=== PATIENT | female | born 1945 | race Caucasian/White ===

== ENCOUNTER → 2016-10-14 | Outpatient (CLI) | payer OTHER, MEDICAID ==
[~2016-10-14] MED LIST: ALPR0.5T; ASPI81CH43; CARI-277; CARTIA; CYCL-181; DONE5TAB11; FURO40TA; GEMF600T3; KLOR CON; LEVOTHYROXINE PO; LIPITOR; METOPROLOL PO; PERCOT; PLAVIX PO; RANITIDINE PO; SUCRALFATE; TRAM50TA2 OR; TRIA37.561
[2016-10-14 10:43] LABS: Basophils # (auto) 0.1 uL; Basophils % (auto) 0.9 % (0.0-2.0); CONDITION Y; Eosinophils # (auto) 0.2 uL; Eosinophils % (auto) 2.3 % (0.0-7.0); Hematocrit 50.2 % (36.0-46.0); Hemoglobin 16.8 g/dL (12.2-16.2); Lymphocytes # (auto) 2.9 uL; Mean Corpuscular Hemoglobin 32.2 pg (28.0-32.0); Mean Corpuscular Hgb Conc. 33.4 g/dL (32.0-36.0); Mean Corpuscular Volume 96.4 fL (80.0-100.0); Mean Platelet Volume 9.6 fL (7.4-10.4); Monocytes # (auto) 0.7 uL; Monocytes % (auto) 7.4 % (0.0-12.0); Neutrophils % (auto) 60.4 % (37.0-80.0); Platelet Count (auto) 209 10^3/uL (140-450); Red Cell Distribution Width 14.9 % (11.6-16.0); White Blood Cell 9.9 10^3/uL (4.4-10.8)
[2016-10-14 11:14] LABS: Albumin 3.4 g/dL (3.4-5.0); BUN/Creatinine Ratio 14.2; Bilirubin, Total 0.6 mg/dL (0.2-1.0); Calcium 9.8 mg/dL (8.5-10.1); Total Protein 7.8 g/dL (6.4-8.2)
[2016-10-14 11:17] LABS: Potassium 5.4 mmol/L (3.5-5.1)
== END | disposition home or self-care (01) ==
LOC: LAB 10:02
PROVIDERS: ATTEND Internal Medicine
DX: M81.0 Age-related osteoporosis without current pathological fracture (principal); J44.9 Chronic obstructive pulmonary disease, unspecified; E78.5 Hyperlipidemia, unspecified; I10 Essential (primary) hypertension
CPT/HCPCS: 36415; 80053; 80061; 84443; 85025

== ENCOUNTER → 2016-12-30 | Outpatient (CLI) | payer OTHER, MEDICAID ==
[~2016-12-30] MED LIST changes: +ALBUTEROL SULF 2.5 MG/0.5ML(0.5%) NEB SOLN ONE
== END | disposition home or self-care (01) ==
LOC: RT 08:27
PROVIDERS: ATTEND Internal Medicine
DX: J44.9 Chronic obstructive pulmonary disease, unspecified (principal)
CPT/HCPCS: 94060

== ENCOUNTER 2017-01-21 12:21 | Inpatient (IN) | payer OTHER, MEDICAID ==
[~2017-01-21] VITALS: Ht 165.1 cm; Wt 77.1 kg
[~2017-01-21 12:21] MED LIST changes: -ALBUTEROL SULF 2.5 MG/0.5ML(0.5%) NEB SOLN ONE
[2017-01-21] MEDS ORDERED: methylPREDNISolone SOD SUCC 125 MG/2 ML VL IV ONE (15:00)
[2017-01-21] MEDS ORDERED: ALBUTEROL SULF 2.5 MG/0.5ML(0.5%) NEB SOLN NEB ONE (15:00)
[2017-01-21] MEDS ORDERED: IPRATROPIUM BROM 0.5 MG/2.5ML INH SOL NEB ONE (15:00)
[2017-01-21 15:21] LABS: Basophils # (auto) 0.1 uL; Eosinophils # (auto) 0.3 uL; Eosinophils % (auto) 2.7 % (0.0-7.0); Hematocrit 44.6 % (36.0-46.0); Lymphocytes % (auto) 29.1 % (10.0-50.0); Mean Corpuscular Hgb Conc. 33.6 g/dL (32.0-36.0); Mean Corpuscular Volume 98.3 fL (80.0-100.0); Mean Platelet Volume 8.4 fL (6.9-10.8); Monocytes # (auto) 0.8 uL; Monocytes % (auto) 8.3 % (0.0-12.0); Neutrophils % (auto) 58.9 % (37.0-80.0); Platelet Count (auto) 161 10^3/uL (140-450); White Blood Cell 10.2 10^3/uL (4.4-10.8)
[2017-01-21 15:52] LABS: Albumin 3.3 g/dL (3.4-5.0); Alkaline Phosphatase 77 U/L (45-117); Anion Gap 6 (5-15); Aspartate Aminotransferase 11 U/L (15-37); BUN/Creatinine Ratio 16.2; Bilirubin, Total 0.5 mg/dL (0.2-1.0); Blood Urea Nitrogen 19 mg/dL (7-18); Calcium 9.1 mg/dL (8.5-10.1); Carbon Dioxide 30 mmol/L (21-32); Chloride 103 mmol/L (98-107); GFR African American 58 mL/min; GFR Non-African American 48 mL/min; Glucose 89 mg/dL (74-106); Sodium 139 mmol/L (136-145); Total Protein 7.2 g/dL (6.4-8.2)
[2017-01-21] MEDS ORDERED: HYDROcodone-ACET 5/325MG TAB PO ONE (16:00)
[2017-01-21 16:18] LABS: Temperature: 22.7 C (20.0-25.0)
[2017-01-21] MEDS ORDERED: KETOROLAC TROMETH 30 MG/ML 1ML VIAL IV ONE (18:15)
[2017-01-21] MEDS ORDERED: NITROGLYCERIN 0.4 MG SL TAB SL PRN (18:30)
[2017-01-21] MEDS ORDERED: PROMETHAZINE HCL 25 MG/ML 1ML IV PRN (18:30)
[2017-01-21] MEDS ORDERED: TEMAZEPAM 15 MG CAP PO PRN (18:30)
[2017-01-21] MEDS ORDERED: MORPHINE SULF INJ 2 MG/ML SYRINGE 1ML IV PRN ×2 (18:30)
[2017-01-21] MEDS ORDERED: ALBUTEROL SULF 2.5 MG/0.5ML(0.5%) NEB SOLN NEB PRN (18:30)
[2017-01-21] MEDS ORDERED: ACETAMINOPHEN 500 MG TAB PO PRN (18:30)
[2017-01-21] MEDS ORDERED: ASPirin 81 mg TAB PO ONE (19:00)
[2017-01-21] MEDS ORDERED: LEVOFLOXACIN 500MG 100 ML IV ONE (19:00)
[2017-01-21] MEDS: ENOXAPARIN SOD 40 MG/0.4 ML SYRINGE SC SCH (19:45)
[2017-01-21 21:25] VITALS: BP 137/65
[2017-01-21 21:40] VITALS: BP 137/65
[2017-01-21 22:01] VITALS: BP 130/60
[2017-01-21] MEDS: GEMFIBROZIL 600 MG TAB PO SCH (22:40)
[2017-01-21] MEDS: SODIUM CHLOR 0.9% PF (SALINE LOCK) 10ML VIAL IV SCH (22:40)
[2017-01-21] MEDS: methylPREDNISolone SOD SUCC 40 MG/ML VL IV SCH (23:34)
[2017-01-21] MEDS: HYDROcodone-ACET 5/325MG TAB PO PRN (23:38)
[2017-01-22] MEDS: ALBUTEROL SULF 2.5 MG/0.5ML(0.5%) NEB SOLN NEB SCH ×4 (00:04→19:11)
[2017-01-22] MEDS: IPRATROPIUM BROM 0.5 MG/2.5ML INH SOL NEB SCH ×4 (00:04→19:10)
[2017-01-22] MEDS ORDERED: DILT240C71 PO (00:36)
[2017-01-22] MEDS ORDERED: LEVO175T31 PO (00:36)
[2017-01-22] MEDS ORDERED: TRAZ100T2 PO (00:36)
[2017-01-22] MEDS ORDERED: METO25TA62 PO (00:36)
[2017-01-22] MEDS ORDERED: HYDR25TA4 PO (00:36)
[2017-01-22] MEDS ORDERED: ATOR20TA50 PO (00:36)
[2017-01-22 05:00] VITALS: BP 130/67
[2017-01-22] MEDS: SODIUM CHLOR 0.9% PF (SALINE LOCK) 10ML VIAL IV SCH ×3 (06:03→21:26)
[2017-01-22] MEDS: methylPREDNISolone SOD SUCC 40 MG/ML VL IV SCH ×2 (06:03→21:27)
[2017-01-22] MEDS: LEVOTHYROXINE SODIUM 50 MCG TAB PO SCH (06:04)
[2017-01-22] MEDS: TRIAMTERENE/HCTZ 37.5/25 MG CAP PO SCH (06:05)
[2017-01-22] MEDS: HYDROcodone-ACET 5/325MG TAB PO PRN ×3 (06:31→21:31)
[2017-01-22 06:56] LABS: Urine Bilirubin Negative (Negative); Urine Blood Negative /uL (Negative); Urine Color Yellow (Yellow); Urine Glucose 1+ mg/dL (Normal); Urine Hyaline Cast FEW /lpf (0 - 2); Urine Ketone 1+ (Negative); Urine Mucus FEW (None Seen); Urine Nitrite Negative (Negative); Urine RBC 2 /hpf (0 - 4); Urine Squamous Epithelial Cell MOD /hpf (<5); Urine Urobilinogen Normal (Negative); Urine pH 5.5 (5.0-8.0)
[2017-01-22] MEDS ORDERED: FUROSEMIDE 40 MG TAB PO SCH (07:00)
[2017-01-22] MEDS: LEVOFLOXACIN 500MG 100 ML IV SCH (09:42)
[2017-01-22] MEDS: DILTIAZEM HCL 120MG ER CAP PO SCH (09:43)
[2017-01-22] MEDS: METOPROLOL SUCCINATE XL 50 MG TAB PO SCH (09:43)
[2017-01-22] MEDS: FAMOTIDINE 20 MG TAB PO SCH (09:44)
[2017-01-22] MEDS: ASPirin 81 mg TAB PO SCH (09:44)
[2017-01-22] MEDS: DONEPEZIL HYDROCHLORIDE 5 MG TAB PO SCH (09:44)
[2017-01-22] MEDS: GEMFIBROZIL 600 MG TAB PO SCH ×2 (09:44→21:27)
[2017-01-22] MEDS: ALPRAZolam 0.5 MG TAB PO SCH (09:45)
[2017-01-22] MEDS: CLOPIDOGREL BISULFATE 75 MG TAB PO SCH (09:45)
[2017-01-22 09:54] VITALS: BP 147/62
[2017-01-22] MEDS ORDERED: POTASSIUM CHL 20 Meq TABLET PO SCH (10:00)
[2017-01-22 14:38] VITALS: BP 131/52
[2017-01-22 17:23] VITALS: BP 125/77
[2017-01-22] MEDS: FUROSEMIDE 40 MG/4 ML VIAL IV SCH (18:06)
[2017-01-22] MEDS: ENOXAPARIN SOD 40 MG/0.4 ML SYRINGE SC SCH (21:26)
[2017-01-22] MEDS: POTASSIUM CHL 20 Meq TABLET PO SCH (21:27)
[2017-01-22 22:00] VITALS: BP 109/50
[2017-01-23] MEDS: IPRATROPIUM BROM 0.5 MG/2.5ML INH SOL NEB SCH ×4 (00:45→19:45)
[2017-01-23] MEDS: ALBUTEROL SULF 2.5 MG/0.5ML(0.5%) NEB SOLN NEB SCH ×4 (00:45→19:45)
[2017-01-23 05:03] VITALS: BP 123/61
[2017-01-23] MEDS: TRIAMTERENE/HCTZ 37.5/25 MG CAP PO SCH (06:02)
[2017-01-23] MEDS: LEVOTHYROXINE SODIUM 50 MCG TAB PO SCH (06:02)
[2017-01-23] MEDS: SODIUM CHLOR 0.9% PF (SALINE LOCK) 10ML VIAL IV SCH ×3 (06:02→22:00)
[2017-01-23] MEDS: FUROSEMIDE 40 MG/4 ML VIAL IV SCH ×2 (06:03→18:36)
[2017-01-23] MEDS: HYDROcodone-ACET 5/325MG TAB PO PRN ×2 (06:10→16:01)
[2017-01-23 06:58] LABS: BUN/Creatinine Ratio 26.3; Calcium 9.5 mg/dL (8.5-10.1); Potassium 4.8 mmol/L (3.5-5.1)
[2017-01-23 09:00] VITALS: BP 121/42
[2017-01-23] MEDS: METOPROLOL SUCCINATE XL 50 MG TAB PO SCH (10:00)
[2017-01-23] MEDS: DILTIAZEM HCL 120MG ER CAP PO SCH (10:00)
[2017-01-23] MEDS: methylPREDNISolone SOD SUCC 40 MG/ML VL IV SCH ×2 (10:20→22:41)
[2017-01-23] MEDS: LEVOFLOXACIN 500MG 100 ML IV SCH (10:21)
[2017-01-23] MEDS: DONEPEZIL HYDROCHLORIDE 5 MG TAB PO SCH (10:23)
[2017-01-23] MEDS: GEMFIBROZIL 600 MG TAB PO SCH ×2 (10:23→22:41)
[2017-01-23] MEDS: CLOPIDOGREL BISULFATE 75 MG TAB PO SCH (10:23)
[2017-01-23] MEDS: FAMOTIDINE 20 MG TAB PO SCH (10:23)
[2017-01-23] MEDS: POTASSIUM CHL 20 Meq TABLET PO SCH ×2 (10:23→22:41)
[2017-01-23] MEDS: ALPRAZolam 0.5 MG TAB PO SCH (10:24)
[2017-01-23] MEDS: ASPirin 81 mg TAB PO SCH (10:24)
[2017-01-23 13:00] VITALS: BP 129/93
[2017-01-23 17:00] VITALS: BP 106/65
[2017-01-23 20:00] VITALS: BP 102/64
[2017-01-23] MEDS: ENOXAPARIN SOD 40 MG/0.4 ML SYRINGE SC SCH (20:50)
[2017-01-23 22:00] VITALS: BP 102/64
[2017-01-24] MEDS: IPRATROPIUM BROM 0.5 MG/2.5ML INH SOL NEB SCH ×3 (00:06→13:08)
[2017-01-24] MEDS: ALBUTEROL SULF 2.5 MG/0.5ML(0.5%) NEB SOLN NEB SCH ×3 (00:08→13:08)
[2017-01-24] MEDS: LORazepam 0.5 MG TAB PO PRN (03:54)
[2017-01-24 05:00] VITALS: BP 115/66
[2017-01-24] MEDS: FUROSEMIDE 40 MG/4 ML VIAL IV SCH ×2 (05:49→18:14)
[2017-01-24] MEDS: SODIUM CHLOR 0.9% PF (SALINE LOCK) 10ML VIAL IV SCH ×3 (05:49→22:03)
[2017-01-24] MEDS: TRIAMTERENE/HCTZ 37.5/25 MG CAP PO SCH (07:00)
[2017-01-24] MEDS: LEVOTHYROXINE SODIUM 50 MCG TAB PO SCH (07:01)
[2017-01-24 07:31] VITALS: BP 130/60
[2017-01-24] MEDS: ALPRAZolam 0.5 MG TAB PO SCH (10:00)
[2017-01-24] MEDS: METOPROLOL SUCCINATE XL 50 MG TAB PO SCH (10:00)
[2017-01-24] MEDS: CLOPIDOGREL BISULFATE 75 MG TAB PO SCH (10:22)
[2017-01-24] MEDS: FAMOTIDINE 20 MG TAB PO SCH (10:22)
[2017-01-24] MEDS: DONEPEZIL HYDROCHLORIDE 5 MG TAB PO SCH (10:22)
[2017-01-24] MEDS: GEMFIBROZIL 600 MG TAB PO SCH ×2 (10:22→22:03)
[2017-01-24] MEDS: methylPREDNISolone SOD SUCC 40 MG/ML VL IV SCH ×2 (10:22→23:32)
[2017-01-24] MEDS: ASPirin 81 mg TAB PO SCH (10:22)
[2017-01-24] MEDS: POTASSIUM CHL 20 Meq TABLET PO SCH ×2 (10:24→22:03)
[2017-01-24] MEDS: LEVOFLOXACIN 500MG 100 ML IV SCH (10:25)
[2017-01-24] MEDS: DILTIAZEM HCL 120MG ER CAP PO SCH (10:26)
[2017-01-24 12:06] VITALS: BP 132/67
[2017-01-24 17:26] VITALS: BP 115/68
[2017-01-24] MEDS: HYDROcodone-ACET 5/325MG TAB PO PRN (20:06)
[2017-01-24] MEDS: ENOXAPARIN SOD 40 MG/0.4 ML SYRINGE SC SCH (20:06)
[2017-01-24 21:28] VITALS: BP 115/68
[2017-01-24 22:00] VITALS: BP 95/63
[2017-01-24] MEDS: BUDESONIDE (INHALATION) 0.5 MG/2 ML NEB NEB SCH (22:02)
[2017-01-25] MEDS: HYDROcodone-ACET 5/325MG TAB PO PRN ×2 (02:39→15:18)
[2017-01-25 04:34] VITALS: BP 126/53
[2017-01-25] MEDS: SODIUM CHLOR 0.9% PF (SALINE LOCK) 10ML VIAL IV SCH ×3 (05:34→22:20)
[2017-01-25] MEDS: IPRATROPIUM BROM 0.5 MG/2.5ML INH SOL NEB SCH ×4 (05:45→18:35)
[2017-01-25] MEDS: BUDESONIDE (INHALATION) 0.5 MG/2 ML NEB NEB SCH ×3 (05:45→18:35)
[2017-01-25] MEDS: ALBUTEROL SULF 2.5 MG/0.5ML(0.5%) NEB SOLN NEB SCH ×4 (05:45→18:34)
[2017-01-25] MEDS: methylPREDNISolone SOD SUCC 40 MG/ML VL IV SCH ×3 (06:00→17:38)
[2017-01-25] MEDS: TRIAMTERENE/HCTZ 37.5/25 MG CAP PO SCH (06:01)
[2017-01-25] MEDS: LEVOTHYROXINE SODIUM 50 MCG TAB PO SCH (06:01)
[2017-01-25] MEDS: ALPRAZolam 0.5 MG TAB PO SCH (09:57)
[2017-01-25] MEDS: POTASSIUM CHL 20 Meq TABLET PO SCH ×2 (09:57→22:30)
[2017-01-25] MEDS: FAMOTIDINE 20 MG TAB PO SCH (09:57)
[2017-01-25] MEDS: DONEPEZIL HYDROCHLORIDE 5 MG TAB PO SCH (09:57)
[2017-01-25] MEDS: ASPirin 81 mg TAB PO SCH (09:57)
[2017-01-25] MEDS: CLOPIDOGREL BISULFATE 75 MG TAB PO SCH (09:57)
[2017-01-25] MEDS: GEMFIBROZIL 600 MG TAB PO SCH ×2 (09:57→23:12)
[2017-01-25] MEDS: DILTIAZEM HCL 120MG ER CAP PO SCH (09:58)
[2017-01-25] MEDS: METOPROLOL SUCCINATE XL 50 MG TAB PO SCH (09:59)
[2017-01-25] MEDS: NICOTINE 21MG/24 HR TOPICAL PATCH TD SCH (10:03)
[2017-01-25] MEDS: LEVOFLOXACIN 500MG 100 ML IV SCH (10:17)
[2017-01-25 10:21] VITALS: BP 104/68
[2017-01-25 13:00] VITALS: BP 93/60
[2017-01-25 16:12] VITALS: BP 134/71
[2017-01-25 21:28] VITALS: BP 137/57
[2017-01-25] MEDS: ENOXAPARIN SOD 40 MG/0.4 ML SYRINGE SC SCH (23:10)
[2017-01-26] MEDS: methylPREDNISolone SOD SUCC 40 MG/ML VL IV SCH ×2 (00:31→06:01)
[2017-01-26 05:00] VITALS: BP 120/57
[2017-01-26] MEDS: SODIUM CHLOR 0.9% PF (SALINE LOCK) 10ML VIAL IV SCH ×3 (05:58→22:59)
[2017-01-26] MEDS: LEVOTHYROXINE SODIUM 50 MCG TAB PO SCH (06:32)
[2017-01-26] MEDS: IPRATROPIUM BROM 0.5 MG/2.5ML INH SOL NEB SCH ×4 (06:34→19:04)
[2017-01-26] MEDS: ALBUTEROL SULF 2.5 MG/0.5ML(0.5%) NEB SOLN NEB SCH ×4 (06:34→19:04)
[2017-01-26] MEDS: TRIAMTERENE/HCTZ 37.5/25 MG CAP PO SCH (06:44)
[2017-01-26 07:20] LABS: Basophils # (auto) 0 uL; Basophils % (auto) 0.1 % (0.0-2.0); Eosinophils # (auto) 0 uL; Hematocrit 49.5 % (36.0-46.0); Hemoglobin 17.1 g/dL (12.2-16.2); Lymphocytes # (auto) 0.6 uL; Mean Corpuscular Hemoglobin 33.5 pg (28.0-32.0); Mean Corpuscular Hgb Conc. 34.7 g/dL (32.0-36.0); Mean Corpuscular Volume 96.7 fL (80.0-100.0); Mean Platelet Volume 9.2 fL (6.9-10.8); Monocytes # (auto) 0.5 uL; Monocytes % (auto) 4.9 % (0.0-12.0); Neutrophils # (auto) 8.1 uL; Platelet Count (auto) 182 10^3/uL (140-450); Red Cell Distribution Width 15.6 % (11.8-14.3); White Blood Cell 9.2 10^3/uL (4.4-10.8)
[2017-01-26 07:47] LABS: BUN/Creatinine Ratio 37.1; Calcium 9.6 mg/dL (8.5-10.1); Potassium 4.4 mmol/L (3.5-5.1)
[2017-01-26 08:10] VITALS: BP 120/51
[2017-01-26 09:23] LABS: Albumin 3.2 g/dL (3.4-5.0); Alkaline Phosphatase 63 U/L (45-117); Aspartate Aminotransferase 9 U/L (15-37); Bilirubin, Direct < 0.1 mg/dL (0-0.2); Bilirubin, Total 0.6 mg/dL (0.2-1.0); Total Protein 7.2 g/dL (6.4-8.2)
[2017-01-26] MEDS: DILTIAZEM HCL 120MG ER CAP PO SCH (10:00)
[2017-01-26] MEDS: METOPROLOL SUCCINATE XL 50 MG TAB PO SCH (10:00)
[2017-01-26] MEDS: predniSONE 20 MG TAB PO SCH (10:14)
[2017-01-26] MEDS: NICOTINE 21MG/24 HR TOPICAL PATCH TD SCH (10:15)
[2017-01-26] MEDS: DONEPEZIL HYDROCHLORIDE 5 MG TAB PO SCH (10:16)
[2017-01-26] MEDS: CLOPIDOGREL BISULFATE 75 MG TAB PO SCH (10:16)
[2017-01-26] MEDS: LEVOFLOXACIN 500 MG TAB PO SCH (10:17)
[2017-01-26] MEDS: FAMOTIDINE 20 MG TAB PO SCH (10:17)
[2017-01-26] MEDS: GEMFIBROZIL 600 MG TAB PO SCH ×2 (10:17→22:10)
[2017-01-26] MEDS: ASPirin 81 mg TAB PO SCH (10:17)
[2017-01-26] MEDS: ALPRAZolam 0.5 MG TAB PO SCH (10:17)
[2017-01-26 13:00] VITALS: BP 103/64
[2017-01-26] MEDS: HYDROcodone-ACET 5/325MG TAB PO PRN ×2 (16:21→23:01)
[2017-01-26] MEDS: BUDESONIDE (INHALATION) 0.5 MG/2 ML NEB NEB SCH (19:04)
[2017-01-26] MEDS: ENOXAPARIN SOD 40 MG/0.4 ML SYRINGE SC SCH (20:00)
[2017-01-26 22:00] VITALS: BP 96/59
[2017-01-27] MEDS: LORazepam 0.5 MG TAB PO PRN (02:35)
[2017-01-27 05:00] VITALS: BP 142/80
[2017-01-27] MEDS: ALBUTEROL SULF 2.5 MG/0.5ML(0.5%) NEB SOLN NEB SCH ×3 (05:56→14:08)
[2017-01-27] MEDS: BUDESONIDE (INHALATION) 0.5 MG/2 ML NEB NEB SCH (05:57)
[2017-01-27] MEDS: IPRATROPIUM BROM 0.5 MG/2.5ML INH SOL NEB SCH ×3 (05:57→14:08)
[2017-01-27] MEDS: SODIUM CHLOR 0.9% PF (SALINE LOCK) 10ML VIAL IV SCH ×2 (06:00→14:00)
[2017-01-27] MEDS: LEVOTHYROXINE SODIUM 50 MCG TAB PO SCH (07:11)
[2017-01-27 07:55] LABS: Calcium 9.5 mg/dL (8.5-10.1)
[2017-01-27 07:57] LABS: BUN/Creatinine Ratio 47.4
[2017-01-27 08:00] VITALS: BP 103/59
[2017-01-27 09:00] VITALS: BP 103/59
[2017-01-27] MEDS: GEMFIBROZIL 600 MG TAB PO SCH (09:20)
[2017-01-27] MEDS: predniSONE 20 MG TAB PO SCH (09:20)
[2017-01-27] MEDS: DILTIAZEM HCL 120MG ER CAP PO SCH (09:21)
[2017-01-27] MEDS: ALPRAZolam 0.5 MG TAB PO SCH (09:21)
[2017-01-27] MEDS: CLOPIDOGREL BISULFATE 75 MG TAB PO SCH (09:21)
[2017-01-27] MEDS: ASPirin 81 mg TAB PO SCH (09:21)
[2017-01-27] MEDS: DONEPEZIL HYDROCHLORIDE 5 MG TAB PO SCH (09:21)
[2017-01-27] MEDS: LEVOFLOXACIN 500 MG TAB PO SCH (09:21)
[2017-01-27] MEDS: FAMOTIDINE 20 MG TAB PO SCH (09:21)
[2017-01-27] MEDS: METOPROLOL SUCCINATE XL 50 MG TAB PO SCH (09:22)
[2017-01-27] MEDS: NICOTINE 21MG/24 HR TOPICAL PATCH TD SCH (09:23)
[2017-01-27] MEDS ORDERED: FLUT110A INH (10:26)
[2017-01-27] MEDS ORDERED: ALBUAER3 IN (10:26)
[2017-01-27 10:43] LABS: Allen Test Yes; Blood 02Sat 82.6 % (96-100); Blood COHb 0.8 % (0.5-1.5); Blood MetHb 0.2 % (0.0-1.5); HCO3 25.6 mmol/L (22-26.0); HHb 17.2 % (0.0-5.0); MODE ROOM AIR; O2Hb 81.8 % (94.0-97.0); PCO2 40.8 mmHg (35.0-45.0); PCO2(T) 40.8 mmHg (35.0-45.0); PO2 48.6 mmHg (80.0-100.0); PO2(T) 48.6 mmHg (80.0-100.0); Sample Type Arterial; pH 7.415 (7.350-7.450)
[2017-01-27 13:00] VITALS: BP 108/71
[2017-01-27] MEDS: HYDROcodone-ACET 5/325MG TAB PO PRN (13:03)
[2017-01-27 17:00] VITALS: BP 109/63
[2017-01-27 17:51] VITALS: BP 108/71
[2017-01-28] MEDS ORDERED: LEVOFLOXACIN 250 MG TAB PO SCH (10:00)
== END 2017-01-27 18:47 | disposition home or self-care (01) | DRG 291 ==
LOC: ER 12:21 → TELE 12:22 → TELE-CENTR 21:25 → CENTRAL 01-25 00:02
PROVIDERS: ADMIT Internal Medicine; ATTEND Internal Medicine
DX: I11.0 Hypertensive heart disease with heart failure (principal); J96.01 Acute respiratory failure with hypoxia; J44.1 Chronic obstructive pulmonary disease with (acute) exacerbation; J81.1 Chronic pulmonary edema; E87.1 Hypo-osmolality and hyponatremia; N39.0 Urinary tract infection, site not specified; I50.33 Acute on chronic diastolic (congestive) heart failure; E78.5 Hyperlipidemia, unspecified; E03.9 Hypothyroidism, unspecified; F17.210 Nicotine dependence, cigarettes, uncomplicated; I25.10 Atherosclerotic heart disease of native coronary artery without angina pectoris; G89.29 Other chronic pain; I71.4 Abdominal aortic aneurysm, without rupture; F41.9 Anxiety disorder, unspecified; R79.89 Other specified abnormal findings of blood chemistry; T50.2X5A Adverse effect of carbonic-anhydrase inhibitors, benzothiadiazides and other diuretics, initial encounter; Z95.5 Presence of coronary angioplasty implant and graft; Z88.1 Allergy status to other antibiotic agents; Z88.5 Allergy status to narcotic agent; Y92.89 Other specified places as the place of occurrence of the external cause; Z82.49 Family history of ischemic heart disease and other diseases of the circulatory system; I25.2 Old myocardial infarction; Z90.710 Acquired absence of both cervix and uterus; Z90.49 Acquired absence of other specified parts of digestive tract; Z88.2 Allergy status to sulfonamides
CPT/HCPCS: 36415; 36600; 71010; 80048; 80053; 80076; 81001; 82805; 83880; 84443; 84484; 85025; 87205; 93005; 93306; 94640; 94761; 96365; 96375; J1885; J1956

== ENCOUNTER 2017-02-02 14:39 | Emergency (ER) | payer OTHER, MEDICAID ==
[~2017-02-02] VITALS: Ht 167.6 cm; Wt 77.1 kg
[~2017-02-02 14:39] MED LIST changes: +ALBUAER3 IN; -ASPI81CH43; +ATOR20TA50 PO; -CARI-277; -CARTIA; -CYCL-181; +DILT240C71 PO; -DONE5TAB11; +FLUT110A INH; -FURO40TA; -GEMF600T3; -KLOR CON; +LEVO175T31 PO; -LEVOTHYROXINE PO; -LIPITOR; +METO25TA62 PO; -METOPROLOL PO; -PERCOT; -RANITIDINE PO; -SUCRALFATE; -TRAM50TA2 OR; +TRAZ100T2 PO; -TRIA37.561
[2017-02-02 19:07] LABS: Basophils # (auto) 0.1 uL; Basophils % (auto) 0.9 % (0.0-2.0); Eosinophils # (auto) 0.1 uL; Eosinophils % (auto) 0.9 % (0.0-7.0); Hematocrit 47.3 % (36.0-46.0); Lymphocytes # (auto) 1.7 uL; Lymphocytes % (auto) 11.9 % (10.0-50.0); Mean Corpuscular Hgb Conc. 33.8 g/dL (32.0-36.0); Mean Corpuscular Volume 97.6 fL (80.0-100.0); Monocytes # (auto) 1.4 uL; Monocytes % (auto) 9.3 % (0.0-12.0); Neutrophils # (auto) 11.3 uL; Platelet Count (auto) 166 10^3/uL (140-450); Red Cell Distribution Width 14.8 % (11.8-14.3); White Blood Cell 14.7 10^3/uL (4.4-10.8)
[2017-02-02 19:30] LABS: Albumin 2.8 g/dL (3.4-5.0); Anion Gap 10 (5-15); Aspartate Aminotransferase 11 U/L (15-37); BUN/Creatinine Ratio 30.3; Blood Urea Nitrogen 46 mg/dL (7-18); Carbon Dioxide 31 mmol/L (21-32); Chloride 102 mmol/L (98-107); GFR African American 43 mL/min; GFR Non-African American 36 mL/min; Glucose 101 mg/dL (74-106); Magnesium 2.9 mg/dL (1.6-2.6); Sodium 143 mmol/L (136-145)
[2017-02-02 19:35] LABS: Alkaline Phosphatase 67 U/L (45-117); Total Protein 7.7 g/dL (6.4-8.2)
[2017-02-02] MEDS ORDERED: KETOROLAC TROMETH 30 MG/ML 1ML VIAL IV ONE (21:00)
[2017-02-02] MEDS ORDERED: cefTRIAXone 1GM/50ML D5W 50 ML IV ONE (21:00)
[2017-02-03 00:04] VITALS: BP 126/82
== END 2017-02-03 00:06 | disposition home or self-care (01) ==
LOC: ER 14:39 → EDBD 14:39 → ER 02-03 00:06
DX: R10.9 Unspecified abdominal pain (principal); I10 Essential (primary) hypertension; I25.2 Old myocardial infarction; E07.89 Other specified disorders of thyroid; J44.9 Chronic obstructive pulmonary disease, unspecified; F17.210 Nicotine dependence, cigarettes, uncomplicated; Z79.899 Other long term (current) drug therapy; Z88.6 Allergy status to analgesic agent; Z88.2 Allergy status to sulfonamides; Z88.8 Allergy status to other drugs, medicaments and biological substances
CPT/HCPCS: 36415; 74176; 80053; 83735; 84484; 85025; 93005; 96365; 96375; 99285; J0696; J1885

== ENCOUNTER 2017-08-14 21:58 | Inpatient (IN) | payer OTHER, MEDICAID ==
[~2017-08-14] VITALS: Ht 167.6 cm; Wt 71.1 kg
[~2017-08-14 21:58] MED LIST changes: +DILT-9 PO; -DILT240C71 PO; +HYDR25TA4 PO; +METO25TA5 PO; -METO25TA62 PO
[2017-08-14] MEDS ORDERED: NITROGLYCERIN 0.4 MG SL TAB SL ONE (22:14)
[2017-08-14] MEDS ORDERED: fentaNYL CITRATE 100 MCG/2 ML VL IV ONE (22:15)
[2017-08-14] MEDS ORDERED: fentaNYL CITRATE 100 MCG/2 ML VL ONE ×2 (22:15→22:53)
[2017-08-14] MEDS ORDERED: ASPirin 81 mg TAB PO ONE (22:15)
[2017-08-14 22:38] LABS: Basophils # (auto) 0.1 uL; Basophils % (auto) 0.7 % (0.0-2.0); Eosinophils # (auto) 0.4 uL; Hematocrit 38.5 % (36.0-46.0); Hemoglobin 12.8 g/dL (12.2-16.2); Lymphocytes # (auto) 2.7 uL; Lymphocytes % (auto) 33.8 % (10.0-50.0); Mean Corpuscular Hgb Conc. 33.2 g/dL (32.0-36.0); Mean Corpuscular Volume 90.4 fL (80.0-100.0); Monocytes # (auto) 0.7 uL; Monocytes % (auto) 9.3 % (0.0-12.0); Neutrophils # (auto) 4.1 uL; Neutrophils % (auto) 51.2 % (37.0-80.0); Nucleated Red Blood Cells % 0.1 %; Platelet Count (auto) 236 10^3/uL (140-450); Red Blood Cells 4.25 10^6/uL (4.0-5.20); Red Cell Distribution Width 17.2 % (11.8-14.3); White Blood Cell 7.9 10^3/uL (4.4-10.8)
[2017-08-14] MEDS ORDERED: SODIUM CHL 0.9% 50 ML ONE (22:38)
[2017-08-14] MEDS ORDERED: ANGIOMAX 250 MG VIAL IV ONE (22:38)
[2017-08-14] MEDS ORDERED: LIDOCAINE 2%HCL (LOCAL ANESTH.) INJ 20ML MDV ONE (22:39)
[2017-08-14] MEDS ORDERED: IOHEXOL 350 MG/ML 100ML IJ ONE (22:39)
[2017-08-14] MEDS ORDERED: MIDAZOLAM HCL 1MG/1ML-2 ML VIAL ONE (22:53)
[2017-08-14] MEDS ORDERED: ONDANSETRON HCL 4 MG/2 ML VIAL ONE (22:54)
[2017-08-14 22:57] LABS: Albumin 2.8 g/dL (3.4-5.0); BUN/Creatinine Ratio 14.8; Calcium 9.3 mg/dL (8.5-10.1); Magnesium 1.9 mg/dL (1.6-2.6); Potassium 3.7 mmol/L (3.5-5.1)
[2017-08-14 23:03] LABS: INR 0.95 (0.9-1.15); Partial Thromboplastin Time 28.7 sec (22.64-33.71); Prothrombin Time 10.3 sec (9.37-12.3)
[2017-08-14] MEDS ORDERED: IODIXANOL 320MG/ML 100ML BTL IV ONE (23:07)
[2017-08-14] MEDS ORDERED: EPTIFIBATIDE INJ (2MG/ML) 10ML VIAL IV ONE (23:10)
[2017-08-14 23:13] LABS: Bilirubin, Total 0.4 mg/dL (0.2-1.0); Total Protein 6.9 g/dL (6.4-8.2)
[2017-08-14] MEDS ORDERED: PRASUGREL HCL 10 MG TAB ONE (23:39)
[2017-08-15] VITALS (95 sets, daily range): BP systolic 70–155; BP diastolic 33–82
[2017-08-15] MEDS ORDERED: SODIUM CHL 0.9% 500 ML IV ONE (00:08)
[2017-08-15] MEDS ORDERED: NITROGLYCERIN 0.4 MG SL TAB SL PRN (00:15)
[2017-08-15] MEDS ORDERED: MORPHINE SULFATE 4 MG/ML SYR/VIAL IV PRN (00:15)
[2017-08-15] MEDS ORDERED: HYDROcodone-ACET 5/325MG TAB PO PRN (00:15)
[2017-08-15] MEDS ORDERED: ACETAMINOPHEN 500 MG TAB PO PRN (00:15)
[2017-08-15] MEDS: NOREPINEPHRINE 16 MG/500ML KIT 500 ML IV SCH (00:15)
[2017-08-15] MEDS ORDERED: NOREPINEPHRINE 16 MG/500ML KIT 500 ML IV ONE (00:20)
[2017-08-15] MEDS: SODIUM CHLORIDE 0.9% 1,000 ML IV SCH ×3 (01:17→20:15)
[2017-08-15] MEDS ORDERED: ALPRAZolam 0.25 MG TAB ONE (01:36)
[2017-08-15] MEDS ORDERED: ATORVASTATIN 20 MG TAB PO SCH (10:00)
[2017-08-15] MEDS ORDERED: NITROGLYCERIN 0.4 MG SL TAB SL ONE (10:00)
[2017-08-15] MEDS: LEVOTHYROXINE SODIUM 50 MCG TAB PO SCH (10:32)
[2017-08-15] MEDS: ASPirin 81 mg TAB PO SCH (10:32)
[2017-08-15] MEDS: PRASUGREL HCL 10 MG TAB PO SCH (10:32)
[2017-08-15] MEDS: ALPRAZolam 0.5 MG TAB PO SCH (10:33)
[2017-08-15] MEDS: DOPamine 3200MCG/ML 250 ML IV SCH (12:11)
[2017-08-15] MEDS: ONDANSETRON HCL 4 MG/2 ML VIAL IV PRN ×2 (12:36→21:12)
[2017-08-15 13:32] LABS: BUN/Creatinine Ratio 15.8; Calcium 8.7 mg/dL (8.5-10.1); Potassium 3.7 mmol/L (3.5-5.1)
[2017-08-15] MEDS ORDERED: IPRATROPIUM BROM 0.5 MG/2.5ML INH SOL NEB ONE (14:00)
[2017-08-15] MEDS ORDERED: ALBUTEROL SULF 2.5 MG/0.5ML(0.5%) NEB SOLN NEB ONE (14:00)
[2017-08-15] MEDS: ALBUTEROL SULF 2.5 MG/0.5ML(0.5%) NEB SOLN NEB SCH ×2 (18:00→22:14)
[2017-08-15] MEDS: IPRATROPIUM BROM 0.5 MG/2.5ML INH SOL NEB SCH ×2 (18:00→22:14)
[2017-08-15] MEDS: BUDESONIDE (INHALATION) 0.5 MG/2 ML NEB NEB SCH (22:15)
[2017-08-16] VITALS (78 sets, daily range): BP systolic 64–184; BP diastolic 40–127
[2017-08-16 04:32] LABS: Albumin 2.4 g/dL (3.4-5.0); Bilirubin, Total 0.4 mg/dL (0.2-1.0); Calcium 9.2 mg/dL (8.5-10.1); Potassium 3.8 mmol/L (3.5-5.1)
[2017-08-16] MEDS: BUDESONIDE (INHALATION) 0.5 MG/2 ML NEB NEB SCH ×2 (06:25→19:30)
[2017-08-16] MEDS: IPRATROPIUM BROM 0.5 MG/2.5ML INH SOL NEB SCH ×3 (06:25→19:29)
[2017-08-16] MEDS: ALBUTEROL SULF 2.5 MG/0.5ML(0.5%) NEB SOLN NEB SCH ×3 (06:25→19:29)
[2017-08-16] MEDS: LEVOTHYROXINE SODIUM 50 MCG TAB PO SCH (06:47)
[2017-08-16] MEDS: SODIUM CHLORIDE 0.9% 1,000 ML IV SCH ×3 (07:24→23:21)
[2017-08-16 07:39] LABS: Basophils # (auto) 0.1 uL; Basophils % (auto) 0.7 % (0.0-2.0); Eosinophils # (auto) 0.3 uL; Eosinophils % (auto) 3.2 % (0.0-7.0); Hematocrit 41.3 % (36.0-46.0); Hemoglobin 13.6 g/dL (12.2-16.2); Lymphocytes % (auto) 22.3 % (10.0-50.0); Mean Corpuscular Hemoglobin 29.8 pg (28.0-32.0); Mean Corpuscular Hgb Conc. 32.9 g/dL (32.0-36.0); Mean Corpuscular Volume 90.5 fL (80.0-100.0); Monocytes # (auto) 0.9 uL; Monocytes % (auto) 10.7 % (0.0-12.0); Neutrophils # (auto) 5.5 uL; Neutrophils % (auto) 63.1 % (37.0-80.0); Nucleated Red Blood Cells % 0.1 %; Platelet Count (auto) 234 10^3/uL (140-450); Red Blood Cells 4.57 10^6/uL (4.0-5.20); Red Cell Distribution Width 17.4 % (11.8-14.3); White Blood Cell 8.8 10^3/uL (4.4-10.8)
[2017-08-16] MEDS: ONDANSETRON HCL 4 MG/2 ML VIAL IV PRN (07:46)
[2017-08-16] MEDS: NOREPINEPHRINE 16 MG/500ML KIT 500 ML IV SCH (09:52)
[2017-08-16] MEDS ORDERED: LEVOTHYROXINE SODIUM 25 MCG TAB PO ONE (10:00)
[2017-08-16] MEDS: PRASUGREL HCL 10 MG TAB PO SCH (10:06)
[2017-08-16] MEDS: ALPRAZolam 0.5 MG TAB PO SCH (10:06)
[2017-08-16] MEDS: ASPirin 81 mg TAB PO SCH (10:06)
[2017-08-16] MEDS: NOREPINEPHRINE 8 MG/250ML KIT 250 ML IV SCH (10:30)
[2017-08-16] MEDS ORDERED: traMADol HCL 50 MG TAB ONE (16:39)
[2017-08-16] MEDS: DOPamine 3200MCG/ML 250 ML IV SCH (17:23)
[2017-08-16] MEDS ORDERED: IBUP800T24 PO (19:31)
[2017-08-16] MEDS ORDERED: CIPR-217 PO (19:31)
[2017-08-16] MEDS ORDERED: TEMA30CA PO (19:31)
[2017-08-16] MEDS ORDERED: UMEC1AER IN (19:31)
[2017-08-16] MEDS: ATORVASTATIN 20 MG TAB PO SCH ×2 (23:20→23:27)
[2017-08-16] MEDS: traMADol HCL 50 MG TAB PO PRN (23:27)
[2017-08-17] VITALS (91 sets, daily range): BP systolic 89–169; BP diastolic 32–78
[2017-08-17] MEDS: IPRATROPIUM BROM 0.5 MG/2.5ML INH SOL NEB SCH ×4 (00:34→19:54)
[2017-08-17] MEDS: ALBUTEROL SULF 2.5 MG/0.5ML(0.5%) NEB SOLN NEB SCH ×4 (00:35→19:54)
[2017-08-17 03:47] LABS: Basophils # (auto) 0 uL; Basophils % (auto) 0.6 % (0.0-2.0); Eosinophils # (auto) 0.2 uL; Eosinophils % (auto) 2.8 % (0.0-7.0); Hematocrit 34.5 % (36.0-46.0); Hemoglobin 11.6 g/dL (12.2-16.2); Lymphocytes # (auto) 1.3 uL; Lymphocytes % (auto) 19.8 % (10.0-50.0); Mean Corpuscular Hemoglobin 30.1 pg (28.0-32.0); Mean Corpuscular Hgb Conc. 33.5 g/dL (32.0-36.0); Mean Corpuscular Volume 89.7 fL (80.0-100.0); Monocytes # (auto) 0.9 uL; Monocytes % (auto) 13.1 % (0.0-12.0); Neutrophils # (auto) 4.3 uL; Neutrophils % (auto) 63.7 % (37.0-80.0); Platelet Count (auto) 215 10^3/uL (140-450); Red Blood Cells 3.85 10^6/uL (4.0-5.20); Red Cell Distribution Width 17.3 % (11.8-14.3); White Blood Cell 6.7 10^3/uL (4.4-10.8)
[2017-08-17 04:04] LABS: BUN/Creatinine Ratio 12.5; Calcium 8.8 mg/dL (8.5-10.1); Potassium 3.9 mmol/L (3.5-5.1)
[2017-08-17] MEDS: BUDESONIDE (INHALATION) 0.5 MG/2 ML NEB NEB SCH ×2 (06:32→19:54)
[2017-08-17] MEDS ORDERED: LEVOTHYROXINE SODIUM 25 MCG TAB PO SCH (07:00)
[2017-08-17] MEDS ORDERED: LEVOTHYROXINE SODIUM 100 MCG TAB PO SCH (07:00)
[2017-08-17] MEDS: SODIUM CHLORIDE 0.9% 1,000 ML IV SCH ×2 (07:19→17:20)
[2017-08-17] MEDS: ONDANSETRON HCL 4 MG/2 ML VIAL IV PRN ×2 (07:41→08:30)
[2017-08-17] MEDS: PRASUGREL HCL 10 MG TAB PO SCH (10:00)
[2017-08-17] MEDS: ALPRAZolam 0.5 MG TAB PO SCH (10:00)
[2017-08-17] MEDS: ASPirin 81 mg TAB PO SCH (10:00)
[2017-08-17] MEDS: NOREPINEPHRINE 8 MG/250ML KIT 250 ML IV SCH (10:01)
[2017-08-17] MEDS: DOPamine 3200MCG/ML 250 ML IV SCH (10:49)
[2017-08-17 12:50] LABS: Urine Bacteria MANY /hpf (None Seen); Urine Blood 2+ /uL (Negative); Urine Specific Gravity 1.018 (1.001-1.035); Urine WBC 2128 /hpf (0 - 5); Urine WBC Clumps PRESENT /hpf (None Seen)
[2017-08-17] MEDS ORDERED: cefTRIAXone 1GM/10ml IVPUSH 10 ML IV ONE (15:45)
[2017-08-17] MEDS: traMADol HCL 50 MG TAB PO PRN (20:29)
[2017-08-18] VITALS (53 sets, daily range): BP systolic 99–140; BP diastolic 42–90
[2017-08-18] MEDS: IPRATROPIUM BROM 0.5 MG/2.5ML INH SOL NEB SCH ×4 (00:07→19:02)
[2017-08-18] MEDS: ALBUTEROL SULF 2.5 MG/0.5ML(0.5%) NEB SOLN NEB SCH ×4 (00:07→19:03)
[2017-08-18] MEDS: traMADol HCL 50 MG TAB PO PRN ×2 (03:30→12:21)
[2017-08-18 03:45] LABS: Basophils # (auto) 0 uL; Basophils % (auto) 0.7 % (0.0-2.0); Eosinophils # (auto) 0.1 uL; Hematocrit 30.1 % (36.0-46.0); Hemoglobin 10.2 g/dL (12.2-16.2); Lymphocytes # (auto) 1.3 uL; Lymphocytes % (auto) 19.7 % (10.0-50.0); Mean Corpuscular Hemoglobin 30.4 pg (28.0-32.0); Mean Corpuscular Hgb Conc. 33.9 g/dL (32.0-36.0); Mean Corpuscular Volume 89.6 fL (80.0-100.0); Monocytes # (auto) 0.9 uL; Monocytes % (auto) 13.5 % (0.0-12.0); Neutrophils # (auto) 4.2 uL; Neutrophils % (auto) 64.1 % (37.0-80.0); Platelet Count (auto) 192 10^3/uL (140-450); Red Blood Cells 3.36 10^6/uL (4.0-5.20); Red Cell Distribution Width 17.1 % (11.8-14.3); White Blood Cell 6.6 10^3/uL (4.4-10.8)
[2017-08-18 04:11] LABS: BUN/Creatinine Ratio 14.3; Calcium 8.8 mg/dL (8.5-10.1)
[2017-08-18] MEDS: LEVOTHYROXINE SODIUM 50 MCG TAB PO SCH (06:28)
[2017-08-18] MEDS: BUDESONIDE (INHALATION) 0.5 MG/2 ML NEB NEB SCH (06:29)
[2017-08-18] MEDS: SODIUM CHLORIDE 0.9% 1,000 ML IV SCH ×2 (08:03→18:53)
[2017-08-18] MEDS: cefTRIAXone 1GM/10ml IVPUSH 10 ML IV SCH (09:09)
[2017-08-18] MEDS: PRASUGREL HCL 10 MG TAB PO SCH (10:04)
[2017-08-18] MEDS: DOPamine 3200MCG/ML 250 ML IV SCH (10:05)
[2017-08-18] MEDS: ALPRAZolam 0.5 MG TAB PO SCH (10:05)
[2017-08-18] MEDS: ASPirin 81 mg TAB PO SCH (10:05)
[2017-08-18] MEDS ORDERED: LACTULOSE 20Gm/30ML SOLN PO ONE (14:30)
[2017-08-18] MEDS: BOOST PLUS 8 ounce PO SCH (18:54)
[2017-08-18] MEDS: ATORVASTATIN 20 MG TAB PO SCH (22:04)
[2017-08-19] MEDS: BUDESONIDE (INHALATION) 0.5 MG/2 ML NEB NEB SCH ×3 (00:29→19:14)
[2017-08-19] MEDS: traMADol HCL 50 MG TAB PO PRN (01:38)
[2017-08-19 05:00] VITALS: BP 151/72
[2017-08-19] MEDS: SODIUM CHLORIDE 0.9% 1,000 ML IV SCH (05:25)
[2017-08-19] MEDS: LEVOTHYROXINE SODIUM 50 MCG TAB PO SCH (05:55)
[2017-08-19 06:17] LABS: BUN/Creatinine Ratio 15.6; Potassium 3.8 mmol/L (3.5-5.1)
[2017-08-19] MEDS: ALBUTEROL SULF 2.5 MG/0.5ML(0.5%) NEB SOLN NEB SCH ×4 (06:39→19:14)
[2017-08-19] MEDS: IPRATROPIUM BROM 0.5 MG/2.5ML INH SOL NEB SCH ×4 (06:39→19:14)
[2017-08-19 09:00] VITALS: BP 151/66
[2017-08-19] MEDS ORDERED: DOCUSATE SOD 100 MG CAP PO ONE (09:15)
[2017-08-19] MEDS ORDERED: KETOROLAC TROMETH 30 MG/ML 1ML VIAL IV ONE (09:15)
[2017-08-19] MEDS ORDERED: LACTULOSE 20Gm/30ML SOLN PO ONE (09:15)
[2017-08-19] MEDS: cefTRIAXone 1GM/10ml IVPUSH 10 ML IV SCH (10:14)
[2017-08-19] MEDS: ASPirin 81 mg TAB PO SCH (10:15)
[2017-08-19] MEDS: predniSONE 20 MG TAB PO SCH (10:15)
[2017-08-19] MEDS: ALPRAZolam 0.5 MG TAB PO SCH (10:15)
[2017-08-19] MEDS: PRASUGREL HCL 10 MG TAB PO SCH (10:16)
[2017-08-19] MEDS: BOOST PLUS 8 ounce PO SCH ×3 (10:17→18:11)
[2017-08-19 13:00] VITALS: BP 143/66
[2017-08-19] MEDS: BENAZEPRIL HCL 10 MG TAB PO SCH (14:16)
[2017-08-19] MEDS: METOPROLOL SUCCINATE XL 50 MG TAB PO SCH (14:17)
[2017-08-19 17:08] VITALS: BP 140/70
[2017-08-19] MEDS: ATORVASTATIN 20 MG TAB PO SCH (21:34)
[2017-08-19 21:51] VITALS: BP 120/64
[2017-08-20] MEDS: IPRATROPIUM BROM 0.5 MG/2.5ML INH SOL NEB SCH ×5 (01:01→22:46)
[2017-08-20] MEDS: ALBUTEROL SULF 2.5 MG/0.5ML(0.5%) NEB SOLN NEB SCH ×5 (01:01→22:45)
[2017-08-20 05:24] VITALS: BP 133/69
[2017-08-20] MEDS: LEVOTHYROXINE SODIUM 50 MCG TAB PO SCH (06:10)
[2017-08-20] MEDS: BUDESONIDE (INHALATION) 0.5 MG/2 ML NEB NEB SCH ×2 (06:15→18:31)
[2017-08-20 09:00] VITALS: BP 126/68
[2017-08-20] MEDS: cefTRIAXone 1GM/10ml IVPUSH 10 ML IV SCH (09:26)
[2017-08-20] MEDS: ASPirin 81 mg TAB PO SCH (09:29)
[2017-08-20] MEDS: PRASUGREL HCL 10 MG TAB PO SCH (09:30)
[2017-08-20] MEDS: ALPRAZolam 0.5 MG TAB PO SCH (09:30)
[2017-08-20] MEDS: predniSONE 20 MG TAB PO SCH (09:30)
[2017-08-20] MEDS: METOPROLOL SUCCINATE XL 50 MG TAB PO SCH (09:31)
[2017-08-20] MEDS: BENAZEPRIL HCL 10 MG TAB PO SCH (09:33)
[2017-08-20] MEDS: BOOST PLUS 8 ounce PO SCH ×3 (09:36→19:22)
[2017-08-20 13:00] VITALS: BP 126/60
[2017-08-20] MEDS: traMADol HCL 50 MG TAB PO PRN ×2 (15:41→21:14)
[2017-08-20 17:37] VITALS: BP 102/78
[2017-08-20] MEDS: ATORVASTATIN 20 MG TAB PO SCH (21:14)
[2017-08-20 22:00] VITALS: BP 113/60
[2017-08-21] MEDS ORDERED: DOCUSATE SOD 100 MG CAP PO PRN (00:30)
[2017-08-21 05:12] VITALS: BP 129/67
[2017-08-21] MEDS: ALBUTEROL SULF 2.5 MG/0.5ML(0.5%) NEB SOLN NEB SCH ×2 (06:14→11:39)
[2017-08-21] MEDS: BUDESONIDE (INHALATION) 0.5 MG/2 ML NEB NEB SCH (06:14)
[2017-08-21] MEDS: IPRATROPIUM BROM 0.5 MG/2.5ML INH SOL NEB SCH ×2 (06:14→11:39)
[2017-08-21] MEDS: LEVOTHYROXINE SODIUM 50 MCG TAB PO SCH (06:28)
[2017-08-21 08:08] LABS: Urine Bacteria FEW /hpf (None Seen); Urine Blood 3+ /uL (Negative); Urine Mucus FEW (None Seen); Urine Specific Gravity 1.017 (1.001-1.035); Urine WBC 143 /hpf (0 - 5); Urine WBC Clumps PRESENT /hpf (None Seen)
[2017-08-21 09:00] VITALS: BP 133/71
[2017-08-21] MEDS: cefTRIAXone 1GM/10ml IVPUSH 10 ML IV SCH (09:58)
[2017-08-21] MEDS: ALPRAZolam 0.5 MG TAB PO SCH (09:59)
[2017-08-21] MEDS: predniSONE 20 MG TAB PO SCH (10:00)
[2017-08-21] MEDS: PRASUGREL HCL 10 MG TAB PO SCH (10:00)
[2017-08-21] MEDS: ASPirin 81 mg TAB PO SCH (10:00)
[2017-08-21] MEDS: BENAZEPRIL HCL 10 MG TAB PO SCH (10:01)
[2017-08-21] MEDS: METOPROLOL SUCCINATE XL 50 MG TAB PO SCH (10:02)
[2017-08-21] MEDS: BOOST PLUS 8 ounce PO SCH ×2 (10:28→17:14)
[2017-08-21 11:10] VITALS: BP 133/71
[2017-08-21 15:23] VITALS: BP 133/71
== END 2017-08-21 16:45 | disposition home or self-care (01) | DRG 246 ==
LOC: EDBD 21:58 → ER 22:01 → ICU WEST 22:02 → TELE-CENTR 08-18 19:40
PROVIDERS: ADMIT Internal Medicine Cardiovascular Disease; ATTEND Internal Medicine
PROC: 027034Z Dilation of Coronary Artery, One Artery with Drug-eluting Intraluminal Device, Percutaneous Approach (ICD-10-PCS; principal; 2017-08-14)
PROC: 4A023N7 Measurement of Cardiac Sampling and Pressure, Left Heart, Percutaneous Approach (ICD-10-PCS; 2017-08-14)
PROC: B2111ZZ Fluoroscopy of Multiple Coronary Arteries using Low Osmolar Contrast (ICD-10-PCS; 2017-08-14)
DX: I21.19 ST elevation (STEMI) myocardial infarction involving other coronary artery of inferior wall (principal); R57.0 Cardiogenic shock; E44.0 Moderate protein-calorie malnutrition; J96.10 Chronic respiratory failure, unspecified whether with hypoxia or hypercapnia; N39.0 Urinary tract infection, site not specified; I50.9 Heart failure, unspecified; I11.0 Hypertensive heart disease with heart failure; J44.9 Chronic obstructive pulmonary disease, unspecified; B96.20 Unspecified Escherichia coli [E. coli] as the cause of diseases classified elsewhere; E03.9 Hypothyroidism, unspecified; F41.9 Anxiety disorder, unspecified; E78.5 Hyperlipidemia, unspecified; F17.210 Nicotine dependence, cigarettes, uncomplicated; I25.10 Atherosclerotic heart disease of native coronary artery without angina pectoris; M17.12 Unilateral primary osteoarthritis, left knee; Z79.02 Long term (current) use of antithrombotics/antiplatelets; Z79.82 Long term (current) use of aspirin; Z82.49 Family history of ischemic heart disease and other diseases of the circulatory system; Z80.9 Family history of malignant neoplasm, unspecified; Z68.25 Body mass index [BMI] 25.0-25.9, adult; Z90.710 Acquired absence of both cervix and uterus; Z95.5 Presence of coronary angioplasty implant and graft; Z88.2 Allergy status to sulfonamides; Z88.5 Allergy status to narcotic agent; Z90.49 Acquired absence of other specified parts of digestive tract
CPT/HCPCS: 36415; 71045; 73560; 80048; 80053; 81001; 83735; 83880; 84443; 84484; 84550; 85025; 85379; 85610; 85730; 87081; 87086; 87088; 87186; 92928; 93005; 93306; 93458; 94640; 94761; 96361; 96374; 96375; 97110; 97116; 97530; 99152; C1874; C1887; J1265; J1885; J2250; J2405; Q9967

== ENCOUNTER 2017-12-02 11:57 | Inpatient (IN) | payer OTHER, MEDICAID ==
[~2017-12-02] VITALS: Ht 162.6 cm; Wt 73.0 kg
[~2017-12-02 11:57] MED LIST changes: +CIPR-217 PO; -DILT-9 PO; -FLUT110A INH; +IBUP800T24 PO; +TEMA30CA PO; +UMEC1AER IN
[2017-12-02] MEDS ORDERED: ALBUTEROL SULF 2.5 MG/0.5ML(0.5%) NEB SOLN NEB ONE (13:00)
[2017-12-02] MEDS ORDERED: IPRATROPIUM BROM 0.5 MG/2.5ML INH SOL NEB ONE (13:00)
[2017-12-02 13:13] LABS: Basophils # (auto) 0.1 uL; Basophils % (auto) 0.9 % (0.0-2.0); Eosinophils # (auto) 0.3 uL; Eosinophils % (auto) 3.2 % (0.0-7.0); Hematocrit 44.5 % (36.0-46.0); Hemoglobin 14.7 g/dL (12.2-16.2); Lymphocytes # (auto) 3.2 uL; Lymphocytes % (auto) 36.7 % (10.0-50.0); Mean Corpuscular Hemoglobin 30.4 pg (28.0-32.0); Mean Corpuscular Volume 92.2 fL (80.0-100.0); Monocytes # (auto) 0.7 uL; Monocytes % (auto) 7.6 % (0.0-12.0); Neutrophils # (auto) 4.5 uL; Neutrophils % (auto) 51.6 % (37.0-80.0); Nucleated Red Blood Cells % 0.1 %; Platelet Count (auto) 176 10^3/uL (140-450); Red Blood Cells 4.83 10^6/uL (4.0-5.20); Red Cell Distribution Width 14.4 % (11.8-14.3); White Blood Cell 8.7 10^3/uL (4.4-10.8)
[2017-12-02 13:25] LABS: INR 0.93 (0.9-1.15); Partial Thromboplastin Time 28.3 sec (23.78-33.04)
[2017-12-02 13:30] LABS: Chloride 103 mmol/L (98-107); Potassium 3.8 mmol/L (3.5-5.1); Sodium 138 mmol/L (136-145)
[2017-12-02 13:34] LABS: Albumin 3.1 g/dL (3.4-5.0); Anion Gap 7 (5-15); BUN/Creatinine Ratio 15.1; Blood Urea Nitrogen 21 mg/dL (7-18); Calcium 9.2 mg/dL (8.5-10.1); Carbon Dioxide 28 mmol/L (21-32); GFR African American 48 mL/min; GFR Non-African American 40 mL/min; Glucose 96 mg/dL (74-106); Magnesium 2.2 mg/dL (1.6-2.6)
[2017-12-02 13:39] LABS: Alanine Aminotransferase 12 U/L (13-56); Alkaline Phosphatase 72 U/L (45-117); Aspartate Aminotransferase 17 U/L (15-37); Bilirubin, Total 0.5 mg/dL (0.2-1.0); Total Protein 6.9 g/dL (6.4-8.2)
[2017-12-02] MEDS ORDERED: cefTRIAXone 1GM/10ml IVPUSH 10 ML IV ONE (16:00)
[2017-12-02] MEDS ORDERED: LACTULOSE 20Gm/30ML SOLN PO PRN (16:00)
[2017-12-02] MEDS ORDERED: NALBUPHINE HCL 10 MG/1ml INJECTION IV PRN (16:00)
[2017-12-02] MEDS ORDERED: NITROGLYCERIN 0.4 MG SL TAB SL PRN (16:00)
[2017-12-02] MEDS ORDERED: ALBUTEROL SULF 2.5 MG/0.5ML(0.5%) NEB SOLN NEB PRN (16:00)
[2017-12-02 16:15] LABS: Urine Bacteria MOD /hpf (None Seen); Urine Blood Negative /uL (Negative); Urine Specific Gravity 1.016 (1.001-1.035); Urine WBC 204 /hpf (0 - 5)
[2017-12-02 16:19] VITALS: BP 124/75
[2017-12-02] MEDS ORDERED: IOHEXOL 350 MG/ML 100ML IJ ONE (16:25)
[2017-12-02] MEDS ORDERED: ASPirin 81 mg TAB PO ONE (16:30)
[2017-12-02] MEDS ORDERED: PROMETHAZINE HCL 25 MG/ML 1ML IV ONE (16:30)
[2017-12-02] MEDS ORDERED: MORPHINE SULF INJ 2 MG/ML SYRINGE 1ML IV ONE (16:30)
[2017-12-02] MEDS: FUROSEMIDE 40 MG/4 ML VIAL IV SCH (16:56)
[2017-12-02] MEDS: PANTOPRAZOLE 40 MG TAB PO SCH (16:56)
[2017-12-02] MEDS: POTASSIUM CHL 20 Meq TABLET PO SCH (16:56)
[2017-12-02] MEDS: methylPREDNISolone SOD SUCC 40 MG/ML VL IV SCH (16:56)
[2017-12-02] MEDS: IPRATROPIUM BROM 0.5 MG/2.5ML INH SOL NEB SCH (18:10)
[2017-12-02] MEDS: ALBUTEROL SULF 2.5 MG/0.5ML(0.5%) NEB SOLN NEB SCH (18:11)
[2017-12-02 19:54] VITALS: BP 129/62
[2017-12-02 20:00] VITALS: BP 129/62
[2017-12-02] MEDS ORDERED: TEMAZEPAM 15 MG CAP PO PRN (21:00)
[2017-12-02] MEDS: SODIUM CHLOR 0.9% PF (SALINE LOCK) 10ML VIAL/SYR IV SCH (22:48)
[2017-12-02] MEDS: traZODone HCL 50 MG TAB PO SCH (22:48)
[2017-12-02] MEDS: ATORVASTATIN 20 MG TAB PO SCH (22:49)
[2017-12-02] MEDS: traMADol HCL 50 MG TAB PO PRN (22:49)
[2017-12-03] MEDS: ALBUTEROL SULF 2.5 MG/0.5ML(0.5%) NEB SOLN NEB SCH ×4 (00:01→18:51)
[2017-12-03] MEDS: IPRATROPIUM BROM 0.5 MG/2.5ML INH SOL NEB SCH ×4 (00:01→18:51)
[2017-12-03] MEDS: methylPREDNISolone SOD SUCC 40 MG/ML VL IV SCH ×2 (03:57→16:27)
[2017-12-03 05:00] VITALS: BP 109/59
[2017-12-03] MEDS: SODIUM CHLOR 0.9% PF (SALINE LOCK) 10ML VIAL/SYR IV SCH ×3 (06:18→21:45)
[2017-12-03] MEDS: LEVOTHYROXINE SODIUM 50 MCG TAB PO SCH (06:24)
[2017-12-03 06:47] LABS: Albumin 3.3 g/dL (3.4-5.0); BUN/Creatinine Ratio 17.6; Bilirubin, Total 0.4 mg/dL (0.2-1.0); Calcium 9.4 mg/dL (8.5-10.1); Potassium 4.3 mmol/L (3.5-5.1); Total Protein 7.1 g/dL (6.4-8.2)
[2017-12-03 09:00] VITALS: BP 114/53
[2017-12-03] MEDS ORDERED: cefTRIAXone 1GM/10ml IVPUSH 10 ML IV SCH (09:00)
[2017-12-03] MEDS: ENOXAPARIN SOD 40 MG/0.4 ML SYRINGE SC SCH (09:27)
[2017-12-03] MEDS: POTASSIUM CHL 20 Meq TABLET PO SCH (09:27)
[2017-12-03] MEDS: FUROSEMIDE 40 MG/4 ML VIAL IV SCH (09:27)
[2017-12-03] MEDS: PANTOPRAZOLE 40 MG TAB PO SCH (09:27)
[2017-12-03] MEDS: CLOPIDOGREL BISULFATE 75 MG TAB PO SCH (09:28)
[2017-12-03] MEDS: ASPirin 81 mg TAB PO SCH (09:28)
[2017-12-03] MEDS ORDERED: ENALAPRIL MALEATE 2.5 MG TAB PO SCH (10:00)
[2017-12-03] MEDS: LEVOFLOXACIN 500 MG TAB PO SCH (11:55)
[2017-12-03 13:00] VITALS: BP 128/64
[2017-12-03 17:00] VITALS: BP 123/52
[2017-12-03] MEDS: traZODone HCL 50 MG TAB PO SCH (21:45)
[2017-12-03] MEDS: ATORVASTATIN 20 MG TAB PO SCH (21:45)
[2017-12-03] MEDS: traMADol HCL 50 MG TAB PO PRN (21:51)
[2017-12-03 22:00] VITALS: BP 106/57
[2017-12-04 04:43] VITALS: BP 90/50
[2017-12-04] MEDS: methylPREDNISolone SOD SUCC 40 MG/ML VL IV SCH ×2 (05:06→16:44)
[2017-12-04] MEDS: SODIUM CHLOR 0.9% PF (SALINE LOCK) 10ML VIAL/SYR IV SCH ×3 (05:07→22:47)
[2017-12-04 06:32] LABS: Basophils # (auto) 0 uL; Basophils % (auto) 0.1 % (0.0-2.0); Eosinophils # (auto) 0 uL; Hematocrit 41.3 % (36.0-46.0); Hemoglobin 14.1 g/dL (12.2-16.2); Lymphocytes # (auto) 0.9 uL; Lymphocytes % (auto) 6.6 % (10.0-50.0); Mean Corpuscular Hemoglobin 31.3 pg (28.0-32.0); Mean Corpuscular Hgb Conc. 34.1 g/dL (32.0-36.0); Mean Corpuscular Volume 91.6 fL (80.0-100.0); Monocytes # (auto) 0.5 uL; Monocytes % (auto) 3.4 % (0.0-12.0); Neutrophils # (auto) 12.8 uL; Neutrophils % (auto) 89.9 % (37.0-80.0); Platelet Count (auto) 187 10^3/uL (140-450); Red Blood Cells 4.51 10^6/uL (4.0-5.20); Red Cell Distribution Width 14.3 % (11.8-14.3); White Blood Cell 14.2 10^3/uL (4.4-10.8)
[2017-12-04 06:43] LABS: BUN/Creatinine Ratio 23.4; Calcium 9.4 mg/dL (8.5-10.1); Potassium 4.3 mmol/L (3.5-5.1)
[2017-12-04] MEDS: IPRATROPIUM BROM 0.5 MG/2.5ML INH SOL NEB SCH ×4 (07:08→19:43)
[2017-12-04] MEDS: ALBUTEROL SULF 2.5 MG/0.5ML(0.5%) NEB SOLN NEB SCH ×4 (07:08→19:43)
[2017-12-04] MEDS: LEVOTHYROXINE SODIUM 50 MCG TAB PO SCH (07:09)
[2017-12-04] MEDS: SODIUM CHLORIDE 0.9% 1,000 ML IV SCH ×3 (08:47→23:30)
[2017-12-04 09:56] VITALS: BP 123/63
[2017-12-04] MEDS: ASPirin 81 mg TAB PO SCH (10:15)
[2017-12-04] MEDS: PANTOPRAZOLE 40 MG TAB PO SCH (10:15)
[2017-12-04] MEDS: LEVOFLOXACIN 500 MG TAB PO SCH (10:15)
[2017-12-04] MEDS: ENOXAPARIN SOD 40 MG/0.4 ML SYRINGE SC SCH (10:15)
[2017-12-04] MEDS: POTASSIUM CHL 20 Meq TABLET PO SCH (10:15)
[2017-12-04] MEDS: CLOPIDOGREL BISULFATE 75 MG TAB PO SCH (10:15)
[2017-12-04 13:00] VITALS: BP 108/49
[2017-12-04 17:03] VITALS: BP 122/64
[2017-12-04 22:00] VITALS: BP 117/59
[2017-12-04] MEDS: traZODone HCL 50 MG TAB PO SCH (22:48)
[2017-12-04] MEDS: ATORVASTATIN 20 MG TAB PO SCH (22:48)
[2017-12-04] MEDS: traMADol HCL 50 MG TAB PO PRN (22:49)
[2017-12-05] MEDS: ALBUTEROL SULF 2.5 MG/0.5ML(0.5%) NEB SOLN NEB SCH ×5 (00:40→23:28)
[2017-12-05] MEDS: IPRATROPIUM BROM 0.5 MG/2.5ML INH SOL NEB SCH ×5 (00:40→23:28)
[2017-12-05] MEDS: methylPREDNISolone SOD SUCC 40 MG/ML VL IV SCH ×2 (04:07→17:31)
[2017-12-05 04:52] VITALS: BP 121/65
[2017-12-05] MEDS: LEVOTHYROXINE SODIUM 50 MCG TAB PO SCH (06:11)
[2017-12-05] MEDS: SODIUM CHLOR 0.9% PF (SALINE LOCK) 10ML VIAL/SYR IV SCH ×3 (06:11→23:36)
[2017-12-05] MEDS: SODIUM CHLORIDE 0.9% 1,000 ML IV SCH ×3 (06:39→23:37)
[2017-12-05 06:45] LABS: Basophils # (auto) 0 uL; Eosinophils # (auto) 0 uL; Hematocrit 42.1 % (36.0-46.0); Hemoglobin 14.3 g/dL (12.2-16.2); Lymphocytes # (auto) 0.6 uL; Lymphocytes % (auto) 5.3 % (10.0-50.0); Mean Corpuscular Hemoglobin 31.4 pg (28.0-32.0); Mean Corpuscular Volume 92.3 fL (80.0-100.0); Monocytes # (auto) 0.3 uL; Monocytes % (auto) 2.9 % (0.0-12.0); Neutrophils # (auto) 10.7 uL; Neutrophils % (auto) 91.8 % (37.0-80.0); Nucleated Red Blood Cells % 0.1 %; Platelet Count (auto) 185 10^3/uL (140-450); Red Blood Cells 4.55 10^6/uL (4.0-5.20); Red Cell Distribution Width 14.3 % (11.8-14.3); White Blood Cell 11.6 10^3/uL (4.4-10.8)
[2017-12-05 06:54] LABS: BUN/Creatinine Ratio 25.8; Calcium 9.3 mg/dL (8.5-10.1); Potassium 4.5 mmol/L (3.5-5.1)
[2017-12-05 09:00] VITALS: BP 133/64
[2017-12-05] MEDS: ASPirin 81 mg TAB PO SCH (09:38)
[2017-12-05] MEDS: CLOPIDOGREL BISULFATE 75 MG TAB PO SCH (09:38)
[2017-12-05] MEDS: POTASSIUM CHL 20 Meq TABLET PO SCH (09:38)
[2017-12-05] MEDS: PANTOPRAZOLE 40 MG TAB PO SCH (09:38)
[2017-12-05] MEDS: LEVOFLOXACIN 500 MG TAB PO SCH (09:38)
[2017-12-05] MEDS: ENOXAPARIN SOD 40 MG/0.4 ML SYRINGE SC SCH (09:39)
[2017-12-05] MEDS ORDERED: SULFAMETHOX W/TRIMETH(800/160MG) DS TAB PO SCH (10:30)
[2017-12-05 13:00] VITALS: BP 134/66
[2017-12-05] MEDS: CEFUROXIME 250 MG TAB PO SCH ×2 (13:49→22:00)
[2017-12-05 16:35] VITALS: BP 134/66
[2017-12-05 17:00] VITALS: BP 130/63
[2017-12-05 22:00] VITALS: BP 144/69
[2017-12-05] MEDS: ATORVASTATIN 20 MG TAB PO SCH (23:36)
[2017-12-05] MEDS: traZODone HCL 50 MG TAB PO SCH (23:36)
[2017-12-06 05:00] VITALS: BP 129/61
[2017-12-06] MEDS: methylPREDNISolone SOD SUCC 40 MG/ML VL IV SCH (05:02)
[2017-12-06] MEDS: SODIUM CHLOR 0.9% PF (SALINE LOCK) 10ML VIAL/SYR IV SCH (05:04)
[2017-12-06 06:00] VITALS: BP 152/71
[2017-12-06] MEDS: IPRATROPIUM BROM 0.5 MG/2.5ML INH SOL NEB SCH ×3 (06:23→19:03)
[2017-12-06] MEDS: ALBUTEROL SULF 2.5 MG/0.5ML(0.5%) NEB SOLN NEB SCH ×3 (06:23→19:03)
[2017-12-06] MEDS: LEVOTHYROXINE SODIUM 50 MCG TAB PO SCH (06:41)
[2017-12-06 07:31] LABS: Basophils # (auto) 0 uL; Eosinophils # (auto) 0 uL; Hematocrit 42.9 % (36.0-46.0); Hemoglobin 14.5 g/dL (12.2-16.2); Lymphocytes # (auto) 0.9 uL; Lymphocytes % (auto) 9.7 % (10.0-50.0); Mean Corpuscular Hemoglobin 31.1 pg (28.0-32.0); Mean Corpuscular Hgb Conc. 33.9 g/dL (32.0-36.0); Mean Corpuscular Volume 91.9 fL (80.0-100.0); Monocytes # (auto) 0.5 uL; Monocytes % (auto) 5.9 % (0.0-12.0); Neutrophils # (auto) 7.6 uL; Neutrophils % (auto) 84.4 % (37.0-80.0); Nucleated Red Blood Cells % 0.1 %; Platelet Count (auto) 156 10^3/uL (140-450); Red Blood Cells 4.67 10^6/uL (4.0-5.20); Red Cell Distribution Width 14.3 % (11.8-14.3)
[2017-12-06 07:46] LABS: Calcium 8.8 mg/dL (8.5-10.1); Potassium 4.3 mmol/L (3.5-5.1)
[2017-12-06] MEDS: CLOPIDOGREL BISULFATE 75 MG TAB PO SCH (09:40)
[2017-12-06] MEDS: POTASSIUM CHL 20 Meq TABLET PO SCH (09:40)
[2017-12-06] MEDS: PANTOPRAZOLE 40 MG TAB PO SCH ×2 (09:40→10:31)
[2017-12-06] MEDS: ASPirin 81 mg TAB PO SCH (09:40)
[2017-12-06] MEDS: predniSONE 20 MG TAB PO SCH (09:40)
[2017-12-06] MEDS: ENOXAPARIN SOD 40 MG/0.4 ML SYRINGE SC SCH (09:41)
[2017-12-06] MEDS ORDERED: LEVOFLOXACIN 250 MG TAB PO SCH (10:00)
[2017-12-06] MEDS ORDERED: ENOXAPARIN SOD 30 MG/0.3 ML SYRINGE SC SCH (10:00)
[2017-12-06] MEDS: CEFUROXIME 250 MG TAB PO SCH ×2 (11:01→21:57)
[2017-12-06 13:00] VITALS: BP 143/70
[2017-12-06 16:10] VITALS: BP 132/62
[2017-12-06] MEDS: SODIUM CHLORIDE 0.9% 1,000 ML IV SCH ×2 (18:14→23:30)
[2017-12-06] MEDS: traZODone HCL 50 MG TAB PO SCH (21:57)
[2017-12-06] MEDS: ATORVASTATIN 20 MG TAB PO SCH (21:58)
[2017-12-06 22:00] VITALS: BP 118/54
[2017-12-07] MEDS: IPRATROPIUM BROM 0.5 MG/2.5ML INH SOL NEB SCH ×4 (00:40→19:20)
[2017-12-07] MEDS: ALBUTEROL SULF 2.5 MG/0.5ML(0.5%) NEB SOLN NEB SCH ×4 (00:40→19:20)
[2017-12-07 05:42] VITALS: BP 118/60
[2017-12-07] MEDS: SODIUM CHLORIDE 0.9% 1,000 ML IV SCH (06:23)
[2017-12-07] MEDS: LEVOTHYROXINE SODIUM 50 MCG TAB PO SCH (06:23)
[2017-12-07 07:22] LABS: Basophils # (auto) 0 uL; Basophils % (auto) 0.2 % (0.0-2.0); Eosinophils # (auto) 0 uL; Eosinophils % (auto) 0.1 % (0.0-7.0); Hematocrit 41.4 % (36.0-46.0); Hemoglobin 13.9 g/dL (12.2-16.2); Lymphocytes # (auto) 1.6 uL; Lymphocytes % (auto) 19.6 % (10.0-50.0); Mean Corpuscular Hgb Conc. 33.6 g/dL (32.0-36.0); Monocytes # (auto) 0.8 uL; Monocytes % (auto) 9.4 % (0.0-12.0); Neutrophils # (auto) 5.8 uL; Neutrophils % (auto) 70.7 % (37.0-80.0); Nucleated Red Blood Cells % 0.1 %; Platelet Count (auto) 147 10^3/uL (140-450); Red Blood Cells 4.49 10^6/uL (4.0-5.20); Red Cell Distribution Width 14.1 % (11.8-14.3); White Blood Cell 8.2 10^3/uL (4.4-10.8)
[2017-12-07 07:36] LABS: Calcium 8.8 mg/dL (8.5-10.1); Potassium 4.3 mmol/L (3.5-5.1)
[2017-12-07 08:57] VITALS: BP 147/69
[2017-12-07] MEDS: ASPirin 81 mg TAB PO SCH (11:04)
[2017-12-07] MEDS: POTASSIUM CHL 20 Meq TABLET PO SCH (11:05)
[2017-12-07] MEDS: CLOPIDOGREL BISULFATE 75 MG TAB PO SCH (11:05)
[2017-12-07] MEDS: predniSONE 20 MG TAB PO SCH (11:05)
[2017-12-07] MEDS: ENOXAPARIN SOD 40 MG/0.4 ML SYRINGE SC SCH (11:06)
[2017-12-07] MEDS: CEFUROXIME 250 MG TAB PO SCH (11:20)
[2017-12-07 12:37] VITALS: BP 145/70
[2017-12-07 17:00] VITALS: BP 136/58
[2017-12-07 21:08] VITALS: BP 151/55
== END 2017-12-07 21:33 | disposition home or self-care (01) | DRG 871 ==
LOC: ER 11:57 → TELE 11:58 → TELE-WESTW 19:58
PROVIDERS: ADMIT Internal Medicine; ATTEND Internal Medicine
DX: A41.9 Sepsis, unspecified organism (principal); N17.0 Acute kidney failure with tubular necrosis; J96.20 Acute and chronic respiratory failure, unspecified whether with hypoxia or hypercapnia; J96.10 Chronic respiratory failure, unspecified whether with hypoxia or hypercapnia; N39.0 Urinary tract infection, site not specified; J44.0 Chronic obstructive pulmonary disease with (acute) lower respiratory infection; E44.1 Mild protein-calorie malnutrition; J44.1 Chronic obstructive pulmonary disease with (acute) exacerbation; B96.20 Unspecified Escherichia coli [E. coli] as the cause of diseases classified elsewhere; E03.9 Hypothyroidism, unspecified; E78.5 Hyperlipidemia, unspecified; F17.210 Nicotine dependence, cigarettes, uncomplicated; F41.9 Anxiety disorder, unspecified; J20.9 Acute bronchitis, unspecified; I11.0 Hypertensive heart disease with heart failure; I25.10 Atherosclerotic heart disease of native coronary artery without angina pectoris; I27.20 Pulmonary hypertension, unspecified; I50.9 Heart failure, unspecified; I70.0 Atherosclerosis of aorta; I77.811 Abdominal aortic ectasia; Z82.49 Family history of ischemic heart disease and other diseases of the circulatory system; Z85.3 Personal history of malignant neoplasm of breast; Z86.73 Personal history of transient ischemic attack (TIA), and cerebral infarction without residual deficits; I25.2 Old myocardial infarction; Z86.79 Personal history of other diseases of the circulatory system; Z90.710 Acquired absence of both cervix and uterus; Z98.61 Coronary angioplasty status; Z99.81 Dependence on supplemental oxygen; Z88.2 Allergy status to sulfonamides; Z88.5 Allergy status to narcotic agent; Z88.1 Allergy status to other antibiotic agents; Z79.01 Long term (current) use of anticoagulants; Z90.49 Acquired absence of other specified parts of digestive tract; Z80.6 Family history of leukemia; Z80.41 Family history of malignant neoplasm of ovary; Z82.3 Family history of stroke
CPT/HCPCS: 36415; 70450; 71045; 71275; 80048; 80053; 80061; 81001; 82550; 83735; 83880; 84443; 84484; 85025; 85379; 85610; 85730; 87070; 87086; 87088; 87186; 87205; 93005; 94640; 96374; 96375; 97110; 97116; 97530; J0696

== ENCOUNTER → 2018-10-04 | Outpatient (CLI) | payer OTHER | END | disposition home or self-care (01) | LOC: LAB 12:31 | PROVIDERS: ATTEND Physician Assistant | DX: Z12.11 Encounter for screening for malignant neoplasm of colon (principal) | CPT/HCPCS: 82270 ==

== ENCOUNTER 2018-12-26 15:04 | Inpatient (IN) | payer OTHER, MEDICAID | END 2018-12-30 14:55 | disposition home or self-care (01) | LOC: ER 15:04 → OVERFLOW 15:05 → WEST WING 12-27 01:45 → TELE-WESTW 12-27 15:17 | DX: K80.20 Calculus of gallbladder without cholecystitis without obstruction (principal); E86.0 Dehydration; E78.00 Pure hypercholesterolemia, unspecified; G89.29 Other chronic pain; I11.0 Hypertensive heart disease with heart failure; I50.9 Heart failure, unspecified; J43.9 Emphysema, unspecified; N28.9 Disorder of kidney and ureter, unspecified; Z85.3 Personal history of malignant neoplasm of breast; Z86.73 Personal history of transient ischemic attack (TIA), and cerebral infarction without residual deficits; Z90.13 Acquired absence of bilateral breasts and nipples; Z90.710 Acquired absence of both cervix and uterus; K57.90 Diverticulosis of intestine, part unspecified, without perforation or abscess without bleeding ==

== ENCOUNTER 2019-11-07 12:04 | Inpatient (IN) | payer OTHER, MEDICAID ==
[~2019-11-07] VITALS: Ht 167.6 cm; Wt 63.7 kg
[~2019-11-07 12:04] MED LIST changes: -ALBUAER3 IN; -ALPR0.5T; -CIPR-217 PO; -PLAVIX PO; -TRAZ100T2 PO; -UMEC1AER IN
[2019-11-07] MEDS ORDERED: ONDANSETRON HCL 4 MG/2 ML VIAL IV ONE ×2 (12:15→19:00)
[2019-11-07] MEDS ORDERED: HYDROmorphone HCL 2 MG/ML VL IV ONE ×2 (12:15→19:00)
[2019-11-07 13:40] LABS: Basophils # (auto) 0.1 10 ^3/uL (0-0.2); Basophils % (auto) 0.8 % (0.0-2.0); Eosinophils # (auto) 0.2 10 ^3/uL (0-0.8); Eosinophils % (auto) 2.7 % (0.0-7.0); Hematocrit 38.5 % (36.0-46.0); Hemoglobin 12.9 g/dL (12.2-16.2); Lymphocytes # (auto) 2.2 10 ^3/uL (0.4-5.4); Lymphocytes % (auto) 26.1 % (10.0-50.0); Mean Corpuscular Hemoglobin 30.2 pg (28.0-32.0); Mean Corpuscular Hgb Conc. 33.5 g/dL (32.0-36.0); Mean Corpuscular Volume 90.2 fL (80.0-100.0); Monocytes # (auto) 0.8 10 ^3/uL (0-1.3); Monocytes % (auto) 9.5 % (0.0-12.0); Neutrophils # (auto) 5.2 10 ^3/uL (1.6-8.6); Neutrophils % (auto) 60.9 % (37.0-80.0); Nucleated Red Blood Cells % 0.1 %; Platelet Count (auto) 153 10^3/uL (140-450); Red Blood Cells 4.27 10^6/uL (4.0-5.20); Red Cell Distribution Width 14.5 % (11.8-14.3); White Blood Cell 8.5 10^3/uL (4.4-10.8)
[2019-11-07 13:59] LABS: Chloride 104 mmol/L (98-107); Potassium 3.9 mmol/L (3.5-5.1); Sodium 137 mmol/L (136-145)
[2019-11-07 14:08] LABS: Alanine Aminotransferase 14 U/L (13-56); Albumin 3.2 g/dL (3.4-5.0); Alkaline Phosphatase 95 U/L (45-117); Anion Gap 6 (5-15); Aspartate Aminotransferase 16 U/L (15-37); BUN/Creatinine Ratio 15.8; Bilirubin, Total 0.8 mg/dL (0.2-1.0); Blood Urea Nitrogen 18 mg/dL (7-18); Calcium 9.6 mg/dL (8.5-10.1); Carbon Dioxide 27 mmol/L (21-32); GFR African American 60 mL/min; GFR Non-African American 49 mL/min; Glucose 82 mg/dL (74-106); Magnesium 2.3 mg/dL (1.6-2.6); Total Protein 7.1 g/dL (6.4-8.2)
[2019-11-07 14:22] LABS: INR 1.01 (0.9-1.15); Partial Thromboplastin Time 25.8 sec (23.64-32.05)
[2019-11-07] MEDS ORDERED: SODIUM CHLORIDE 0.9% 500 ML IV ONE (14:45)
[2019-11-07] MEDS ORDERED: IOHEXOL 350 MG/ML 100ML IJ ONE (15:32)
[2019-11-07 17:35] LABS: Urine Bacteria MOD /hpf (None Seen); Urine Blood Negative /uL (Negative); Urine Specific Gravity 1.005 (1.001-1.035); Urine WBC 35 /hpf (0 - 5)
[2019-11-07] MEDS ORDERED: methylPREDNISolone SOD SUCC 125 MG/2 ML VL IV ONE (18:00)
[2019-11-07] MEDS ORDERED: NITROGLYCERIN 0.4 MG SL TAB SL PRN (19:00)
[2019-11-07] MEDS ORDERED: ACETAMINOPHEN 325 MG TAB PO PRN (19:00)
[2019-11-07] MEDS ORDERED: ONDANSETRON HCL 4 MG/2 ML VIAL IV PRN (19:00)
[2019-11-07] MEDS ORDERED: MORPHINE SULF INJ 2 MG/ML SYRINGE 1ML IV PRN (19:00)
[2019-11-07 21:36] VITALS: BP 137/66
[2019-11-07] MEDS: cefTRIAXone 1GM/50ML D5W 50 ML IV SCH (22:23)
[2019-11-07] MEDS: METOPROLOL TARTRATE 25 MG TAB PO SCH (22:23)
[2019-11-07] MEDS: TEMAZEPAM 15 MG CAP PO PRN (22:23)
[2019-11-07] MEDS: ATORVASTATIN 20 MG TAB PO SCH (22:23)
--- NOTE | 2019-11-07 22:40 | NUR ---
ADMITTED PATIENT FROM THE ER, AAOX4. NO DISTRESS NOTED. AFEBRILE. COMPLAINED OF MILD CHEST PAIN, BUT TOLERABLE FOR NOW. MILD SOB NOTED ON EXERTION. ROUTINE ADMISSION DONE. INTRODUCED MYSELF TO THE PATIENT. POCS DISCUSSED WITH PATIENT AND SHOWED UNDERSTANDING. BED KEPT ON LOWEST POSITION. SIDE RAILS UP. CALL LIGHT/TABLE IN REACH. KEPT COMFORTABLE.
[2019-11-07 22:54] VITALS: BP 142/75
[2019-11-08 05:00] VITALS: BP 130/67
[2019-11-08] MEDS ORDERED: LEVOTHYROXINE SODIUM 50 MCG TAB PO SCH (07:00)
[2019-11-08 07:45] LABS: BUN/Creatinine Ratio 17.2; Calcium 9.6 mg/dL (8.5-10.1); Potassium 4.4 mmol/L (3.5-5.1)
--- NOTE | 2019-11-08 07:52 | NUR ---
Opening Note Assumed pt care from NOC RN. Pt is a/ox4 with no s/s of distress or SOB. Pt is currently laying in bed with no complaints at this time. Pt is currently on 4L via NC. Discussed POC with pt and pending echo and VQ scan; pt verbalized understanding. Safety measures maintained with call light within reach, bed in lowest position and side rails up. Will continue to monitor for changes.
[2019-11-08] MEDS: cefTRIAXone 1GM/50ML D5W 50 ML IV SCH (08:26)
[2019-11-08 08:48] VITALS: BP 138/49
[2019-11-08] MEDS: HCTZ 25 MG TAB PO SCH (09:32)
[2019-11-08] MEDS: METOPROLOL TARTRATE 25 MG TAB PO SCH ×2 (09:33→22:09)
[2019-11-08] MEDS: CLOPIDOGREL BISULFATE 75 MG TAB PO SCH (09:33)
[2019-11-08] MEDS: PANTOPRAZOLE 40 MG TAB PO SCH (09:33)
[2019-11-08 13:00] VITALS: BP 131/65
--- NOTE | 2019-11-08 15:31 | NUR ---
Ignacio GARCIA Pt states she is experiencing some generalized body aches and pain, 09/19. Pt currently does not have any PRN pain medications. Ignacio GARCIA for possible orders. Will continue to monitor. Addendum: 11/08/19 at 1626 by YOKASTA NGUYEN RN RN Second page sent to . Addendum: 11/08/19 at 1629 by YOKASTA NGUYEN RN RN MD vance back. Orders read back and verified. Will implement.
[2019-11-08] MEDS ORDERED: traMADol HCL 50 MG TAB PO ONE (16:30)
[2019-11-08 17:00] VITALS: BP 120/48
--- NOTE | 2019-11-08 19:20 | NUR ---
Opening shift note Assumed care of patient who is A&Ox4, respirations even and non-labored with no s/s of distress. Patient has no complaints of pain at this time. Discussed POC with patient who verbalized understanding. Bed in lowest locked position with 2 side rails up, call light within reach. Will continue to monitor.
[2019-11-08 22:00] VITALS: BP 130/63
[2019-11-08] MEDS: ATORVASTATIN 20 MG TAB PO SCH (22:08)
[2019-11-08] MEDS: TEMAZEPAM 15 MG CAP PO PRN (22:10)
--- NOTE | 2019-11-08 22:30 | NUR ---
Patient requested oxygen mask Patient stated that she is unable to sleep with a NC and needed a mask due to breathing through her mouth while she sleeps. Replaced her NC with a mask for patient comfort. Oxygen saturation at 98%. Will continue to monitor.
--- NOTE | 2019-11-09 01:30 | NUR ---
Patient HR 38 Patient sleeping. Awoke to name, A&Ox4. Patient stated that she normally has a very low HR while sleeping. HR increased 40-50's. Will continue to monitor.
--- NOTE | 2019-11-09 03:01 | NUR ---
Patient HR 36 Patient sleeping, easily aroused by name, A&Ox4 without s/s of distress or SOB. HR increased to 52. Will continue to monitor.
[2019-11-09 05:00] VITALS: BP 111/59
[2019-11-09] MEDS: LEVOTHYROXINE SODIUM 50 MCG TAB PO SCH (06:13)
[2019-11-09 08:50] VITALS: BP 108/47
--- NOTE | 2019-11-09 09:26 | NUR ---
Dr. Morales in to see patient as hospitalist. Dr. Morales informed that patient states two of the toes on her left foot are broken. Order received for foot X-ray. Will continue to monitor.
[2019-11-09] MEDS: HCTZ 25 MG TAB PO SCH (10:00)
[2019-11-09] MEDS: METOPROLOL TARTRATE 25 MG TAB PO SCH ×2 (10:00→21:22)
[2019-11-09] MEDS: cefTRIAXone 1GM/50ML D5W 50 ML IV SCH (10:27)
[2019-11-09] MEDS: CLOPIDOGREL BISULFATE 75 MG TAB PO SCH (10:27)
[2019-11-09] MEDS: PANTOPRAZOLE 40 MG TAB PO SCH (10:27)
[2019-11-09 12:46] VITALS: BP 116/61
--- NOTE | 2019-11-09 13:15 | NUR ---
IV removal IV left forearm DC'd with sterile technique, catheter fully intact. Pressure dressing applied to site. Patient tolerated procedure well. NOTE:
--- NOTE | 2019-11-09 13:39 | NUR ---
IV insertion IV access obtained, via clean sterile technique by inserting 22 gauge catheter at left upper chest after 2 attempts. IV secured properly. No trauma to site. Patient tolerated procedure well. IV started by JOSE Evans.
[2019-11-09 16:44] VITALS: BP 147/72
[2019-11-09] MEDS ORDERED: LORazepam 0.5 MG TAB PO ONE (19:00)
--- NOTE | 2019-11-09 20:15 | NUR ---
pt is aware that she is to not have anything by mouth after midnight for angiogram in am, also aware that both groin areas need to be shaved for procedure. Consent prepared for signature.
[2019-11-09] MEDS: ATORVASTATIN 20 MG TAB PO SCH (21:22)
[2019-11-09] MEDS: TEMAZEPAM 15 MG CAP PO PRN (21:23)
[2019-11-09 22:00] VITALS: BP 154/61
[2019-11-10] MEDS: SODIUM CHLORIDE 0.9% 1,000 ML IV SCH ×2 (02:45→11:26)
[2019-11-10 05:00] VITALS: BP 129/61
[2019-11-10] MEDS: LEVOTHYROXINE SODIUM 50 MCG TAB PO SCH (06:07)
--- NOTE | 2019-11-10 07:52 | NUR ---
PT TAKEN DOWN TO GEODETIC SURVEYOR TECHNOLOGIST REPORT GIVEN TO RENATA GARCIA, ATIVAN 1MG GIVEN TO RN, CANNOT ADMINISTER AT THIS TIME, CONSENTS NOT SIGNED, PT REQUESTING TO SPEAK WITH DR SHARP, CONT CARE
[2019-11-10 08:00] VITALS: BP 137/62
[2019-11-10] MEDS ORDERED: ANGIOMAX 250 MG VIAL IV ONE (08:35)
[2019-11-10] MEDS ORDERED: fentaNYL CITRATE 100 MCG/2 ML VL ONE (08:35)
[2019-11-10] MEDS ORDERED: MIDAZOLAM HCL 1MG/1ML-2 ML VIAL ONE (08:36)
[2019-11-10] MEDS ORDERED: SODIUM CHL 0.9% 50 ML ONE (08:36)
[2019-11-10] MEDS ORDERED: LIDOCAINE 2%HCL (LOCAL ANESTH.) INJ 20ML MDV ONE (08:44)
[2019-11-10 09:08] VITALS: BP 135/62
[2019-11-10] MEDS: CLOPIDOGREL BISULFATE 75 MG TAB PO SCH (09:34)
[2019-11-10] MEDS ORDERED: CLOPIDOGREL BISULFATE 75 MG TAB ONE (09:35)
[2019-11-10] MEDS ORDERED: ASPirin 81 mg TAB ONE (09:35)
[2019-11-10] MEDS ORDERED: ASPirin 325 MG TAB ONE (09:43)
[2019-11-10] MEDS: METOPROLOL TARTRATE 25 MG TAB PO SCH ×2 (10:00→22:00)
--- NOTE | 2019-11-10 10:29 | NUR ---
S/P HEART CATH Catheterization site assessed for any bleeding, redness or swelling, Dressing CDI to right groin, Pedal pulses on affected leg assessed for positive tissue perfusion. Patient instructed on need to notify staff immediately if any pain, burning or wetness to site, and any lower back pain. All questions and concerns addressed, patient verbalized understanding of all education and instruction. Patient instructed to avoid moving RLE and call for asssist with voiding until 1146. call light within reach, bed alarm on, cont care
[2019-11-10] MEDS: cefTRIAXone 1GM/50ML D5W 50 ML IV SCH (11:24)
[2019-11-10] MEDS: PANTOPRAZOLE 40 MG TAB PO SCH (11:25)
[2019-11-10] MEDS: HCTZ 25 MG TAB PO SCH (11:25)
--- NOTE | 2019-11-10 12:00 | NUR ---
Regarding IM, right as a hospital inpatient to appeal discharge by contacting the [facility]. Patient was unable to sign due to getting a procedure at the time.
[2019-11-10 13:03] VITALS: BP 142/90
--- NOTE | 2019-11-10 15:27 | NUR ---
assessment Patient is a 74 year old female who is alert and oriented. Patients cognitive abilities are intact. Prior to admission patient lived home with her daughter Cinthya and functioned with assistance. Per patient she will return home to her prior living arrangements post discharge and Cinthya will transport her home. Patient has a fww, cane and oxygen @ 4L/min for home use. Patient informed me her [facility] caregiver is Consuelo and she comes in 6 days per week. Patient informed me she called 911 due to chest pain. Patient informed me she does not want SNF, she wants to return home on discharge. Patient has no post discharge needs at this time. I informed patient she has a right to speak to a social media designer regarding all care. I informed patient she has a right to participate in any and all discharge planning. Patient has a POA and advanced directive. Patient verbalized understanding and agreed to discharge plan. Addendum: 11/10/19 at 1531 by Arlene WALKER Amended: Links added.
--- NOTE | 2019-11-10 15:30 | NUR ---
ACTIVITY PT OOB TO USE BSC, STANDBY ASSIST, ASSISTED BACK TO BED, DRESSING TO RIGHT GROIN CDI, NO BLEEDING, SWELLING NOTED, CALL LIGHT WITHIN REACH, CONT CARE
[2019-11-10 16:55] VITALS: BP 150/79
--- NOTE | 2019-11-10 17:00 | NUR ---
PT CARE ENDORSED TO BETO GARCIA
[2019-11-10 22:00] VITALS: BP 119/57
[2019-11-10] MEDS: ATORVASTATIN 20 MG TAB PO SCH (22:00)
--- NOTE | 2019-11-11 00:15 | NUR ---
0. REPORT OBTAINED ON PATIENT. ASSUMED PATIENT CARE. 1939. PATIENT SEEN LYING ON HER BED CALM. DENIED PAIN OR DISCOMFORT. DRESSING ON R GROIN CLEAR AND DRY
[2019-11-11 05:00] VITALS: BP 98/50
[2019-11-11] MEDS: LEVOTHYROXINE SODIUM 50 MCG TAB PO SCH (06:37)
--- NOTE | 2019-11-11 06:48 | NUR ---
PATIENT AWAKE AND STABLE.
--- NOTE | 2019-11-11 07:30 | NUR ---
Opening Shift Note Assumed care of patient, awake and alert. No S/S of distress/SOB or pain. Instructed on POC and to call for assist PRN, will continue to monitor for changes Q1hr and PRN.
[2019-11-11 08:19] LABS: Basophils # (auto) 0.1 10 ^3/uL (0-0.2); Basophils % (auto) 0.8 % (0.0-2.0); Eosinophils # (auto) 0.2 10 ^3/uL (0-0.8); Eosinophils % (auto) 1.9 % (0.0-7.0); Hematocrit 41.9 % (36.0-46.0); Hemoglobin 14.1 g/dL (12.2-16.2); Lymphocytes # (auto) 1.4 10 ^3/uL (0.4-5.4); Lymphocytes % (auto) 15.1 % (10.0-50.0); Mean Corpuscular Hemoglobin 30.3 pg (28.0-32.0); Mean Corpuscular Hgb Conc. 33.5 g/dL (32.0-36.0); Mean Corpuscular Volume 90.4 fL (80.0-100.0); Monocytes # (auto) 0.9 10 ^3/uL (0-1.3); Monocytes % (auto) 9.5 % (0.0-12.0); Neutrophils # (auto) 6.7 10 ^3/uL (1.6-8.6); Neutrophils % (auto) 72.7 % (37.0-80.0); Platelet Count (auto) 164 10^3/uL (140-450); Red Blood Cells 4.64 10^6/uL (4.0-5.20); Red Cell Distribution Width 14.3 % (11.8-14.3); White Blood Cell 9.2 10^3/uL (4.4-10.8)
[2019-11-11 08:41] LABS: Calcium 9.7 mg/dL (8.5-10.1); Potassium 3.9 mmol/L (3.5-5.1)
[2019-11-11] MEDS: cefTRIAXone 1GM/50ML D5W 50 ML IV SCH (09:00)
[2019-11-11] MEDS ORDERED: ATOR20TA50 PO (09:27)
[2019-11-11] MEDS ORDERED: ASPI81CH43 PO (09:27)
[2019-11-11] MEDS ORDERED: CLOP75TA28 PO (09:28)
[2019-11-11] MEDS: CLOPIDOGREL BISULFATE 75 MG TAB PO SCH (09:50)
[2019-11-11] MEDS: PANTOPRAZOLE 40 MG TAB PO SCH (09:50)
[2019-11-11] MEDS: METOPROLOL TARTRATE 25 MG TAB PO SCH (10:00)
[2019-11-11] MEDS ORDERED: ASPirin 81 mg TAB PO SCH (10:00)
[2019-11-11] MEDS: HCTZ 25 MG TAB PO SCH (10:00)
--- NOTE | 2019-11-11 14:09 | NUR ---
SPOKE TO PT'S DAUGHTER, CHAPITO Discharge instructions given as ordered. Encourage to follow up with PMD as instructed. All questions and concerns addressed. CHAPITO VERBALIZED UNDERSTANDING. INSTRUCTIONS WERE ALSO GIVEN TO PT.
== END 2019-11-11 14:45 | disposition home or self-care (01) | DRG 247 ==
LOC: ER 12:04 → EDBD 12:04 → TELE-WESTW 12:05
PROVIDERS: ADMIT Nurse Practitioner; ATTEND Internal Medicine Nephrology
PROC: 027034Z Dilation of Coronary Artery, One Artery with Drug-eluting Intraluminal Device, Percutaneous Approach (ICD-10-PCS; principal; 2019-11-10)
PROC: 4A023N7 Measurement of Cardiac Sampling and Pressure, Left Heart, Percutaneous Approach (ICD-10-PCS; 2019-11-10)
PROC: B2151ZZ Fluoroscopy of Left Heart using Low Osmolar Contrast (ICD-10-PCS; 2019-11-10)
PROC: B2111ZZ Fluoroscopy of Multiple Coronary Arteries using Low Osmolar Contrast (ICD-10-PCS; 2019-11-10)
DX: T82.855A Stenosis of coronary artery stent, initial encounter (principal); N39.0 Urinary tract infection, site not specified; J96.11 Chronic respiratory failure with hypoxia; J98.11 Atelectasis; I50.9 Heart failure, unspecified; Z99.81 Dependence on supplemental oxygen; I71.2 Thoracic aortic aneurysm, without rupture; I27.20 Pulmonary hypertension, unspecified; E03.9 Hypothyroidism, unspecified; E78.5 Hyperlipidemia, unspecified; I11.0 Hypertensive heart disease with heart failure; I25.2 Old myocardial infarction; F41.9 Anxiety disorder, unspecified; G89.29 Other chronic pain; M54.9 Dorsalgia, unspecified; Y83.1 Surgical operation with implant of artificial internal device as the cause of abnormal reaction of the patient, or of later complication, without mention of misadventure at the time of the procedure; J43.2 Centrilobular emphysema; I25.118 Atherosclerotic heart disease of native coronary artery with other forms of angina pectoris; Z80.9 Family history of malignant neoplasm, unspecified; Z82.3 Family history of stroke; Z82.49 Family history of ischemic heart disease and other diseases of the circulatory system; Z85.3 Personal history of malignant neoplasm of breast; Z86.73 Personal history of transient ischemic attack (TIA), and cerebral infarction without residual deficits; Z86.79 Personal history of other diseases of the circulatory system; Z87.891 Personal history of nicotine dependence; Z90.13 Acquired absence of bilateral breasts and nipples; Z90.710 Acquired absence of both cervix and uterus; Z88.2 Allergy status to sulfonamides; Z88.5 Allergy status to narcotic agent; Z88.1 Allergy status to other antibiotic agents
CPT/HCPCS: 36415; 71045; 71275; 73630; 80048; 80053; 81001; 83690; 83735; 83880; 84439; 84443; 84484; 85025; 85379; 85610; 85730; 92928; 93005; 93306; 93458; 96361; 96365; 96375; 96376; 99152; 99153; C1874; C1887; G0378; J0696; J2250; J2405

== ENCOUNTER 2020-04-29 19:11 | Emergency (ER) | payer OTHER, MEDICAID ==
[~2020-04-29] VITALS: Ht 160 cm; Wt 68.2 kg
[2020-04-29 19:11] VITALS: BP 0/0
[~2020-04-29 19:11] MED LIST changes: +ASPI81CH43 PO; +CLOP75TA28 PO; -IBUP800T24 PO; -LEVO175T31 PO; +LEVO175T66 PO
[2020-04-29] MEDS ORDERED: SODIUM BICARBONATE 8.4% INJ 50ML SYRINGE IV ONE (19:12)
[2020-04-29] MEDS ORDERED: MAGNESIUM SULF 50% 40 MEQ/10 ML VL IV ONE (19:12)
[2020-04-29] MEDS ORDERED: EPINEPHrine HCL 1 MG/10 ML SYRG IV ONE (19:12)
== END 2020-04-29 19:21 ==
LOC: EDBD 19:11 → ER 19:11
DX: I25.10 Atherosclerotic heart disease of native coronary artery without angina pectoris (principal); I11.0 Hypertensive heart disease with heart failure; I50.9 Heart failure, unspecified; E78.5 Hyperlipidemia, unspecified; J44.9 Chronic obstructive pulmonary disease, unspecified; Z90.49 Acquired absence of other specified parts of digestive tract; Z90.710 Acquired absence of both cervix and uterus; Z87.891 Personal history of nicotine dependence; Z79.82 Long term (current) use of aspirin; Z79.899 Other long term (current) drug therapy; Z88.2 Allergy status to sulfonamides; Z88.6 Allergy status to analgesic agent; Z88.8 Allergy status to other drugs, medicaments and biological substances
CPT/HCPCS: 31500; 92950; 99285; J0171; J3475